=== PATIENT | female | born 1960 | race Caucasian/White ===

== ENCOUNTER 2020-09-15 12:43 | Outpatient (REF) | payer BC, SELFPAY | END 2020-09-15 12:44 | disposition home or self-care (01) | LOC: HO.LAB 12:43 | PROVIDERS: Visit Provider Internal Medicine | DX: Z20.828 Contact with and (suspected) exposure to other viral communicable diseases (principal) | CPT/HCPCS: C9803; U0003 ==

== ENCOUNTER 2021-03-14 07:52 | Outpatient (REF) | payer BC, SELFPAY ==
--- NOTE | ~2021-03-14 | MM_ITS ---
EXAMINATION: MM SCREENING DIGITAL BREAST TOMOSYNTHESIS, BILATERAL CLINICAL INFORMATION: Screening. Asymptomatic. The lifetime risk of breast cancer based on the Tyrer-Cuzick Model is 8%. COMPARISON: Mammography: 03/22/2015, 02/10/2014 TECHNIQUE: Digital breast tomosynthesis is performed in both the craniocaudal and mediolateral oblique views along with computer-aided detection (CAD). Synthesized 2D images are generated from the tomosynthesis. Additional exaggerated left CC view is provided. FINDINGS: There are scattered areas of fibroglandular density (ACR BI-RADS breast composition Category b). There are no significant masses, abnormal calcifications, or other abnormalities. Parenchymal pattern is similar to prior studies. No significant changes. MM/MM tomosynthesis screening BI IMPRESSION: No mammographic evidence of malignancy. ASSESSMENT: BI-RADS 1: Negative RECOMMENDATION: Routine annual mammography screening. This patient's information was entered into a reminder system with a target due date for their next mammogram.
--- NOTE | ~2021-03-14 | MM_ITS ---
EXAMINATION: BONE DENSITOMETRY CLINICAL INDICATION: Postmenopausal. COMPARISON: None (current study represents initial baseline exam). TECHNIQUE: Using a [employer] DXA System (software version: 13.1) manufactured by [employer], dual-energy x-ray absorptiometry was performed of the lumbar spine and left hip. The images are of good technical quality. Summary results are attached. FINDINGS: AP SPINE L1-L4: BMD 1.372 g/cm2, Z-score 1.5, T-score 1.6, normal. LEFT FEMUR, NECK: BMD 1.142 g/cm2, Z-score 1.1, T-score 0.7, normal. LEFT FEMUR, TOTAL: BMD 1.226 g/cm2, Z-score 1.7, T-score 1.7, normal. IDENTIFIED RISK FACTORS: 3 or more alcoholic drinks per day, thiazide. Early menopause, secondary osteoporosis. HISTORY OF FRACTURE: None listed. MEDICATIONS: None listed. MM/XR DEXA axial skeleton IMPRESSION: 1. DIAGNOSIS: Normal bone density based on the lowest T-score value of 0.7 in the femoral neck applying World Health Organization criteria. 2. 10-YEAR FRACTURE RISK PREDICTION, FRAX: Major osteoporotic fracture (clinical spine, forearm, hip or shoulder) 5.5%. Hip fracture 0.1%. 3. Treatment Recommendations: NOF guidelines recommend consideration for treatment in postmenopausal women and men age 50 and older presenting with the following: -A hip or vertebral (clinical or morphometric) fracture. -T-score less than or equal to -2.5 at the femoral neck or spine after appropriate evaluation to exclude secondary causes. -Low bone mass at the hip or spine and a 10-year fracture probability by FRAX of greater than or equal to 3% for hip fracture or greater than or equal to 20% for major osteoporotic fracture based on the [place] adapted WHO algorithm. 4. Other Recommendations: All treatment decisions require clinical judgment and consideration of individual patient factors, including patient preferences, comorbidities, previous drug use, risk factors not captured in the FRAX model (e.g. frailty, falls, vitamin D deficiency, increased bone turnover, interval significant decline in bone density) and possible under or overestimation of fracture risk by FRAX. FUTURE SCAN RECOMMENDATION: People with diagnosed cases of osteoporosis or at high risk for fracture should have regular bone mineral density tests. For patients eligible for Medicare, routine testing is allowed once every 2 years. The testing frequency can be increased to one year for patients who have rapidly progressing disease, those who are receiving or discontinuing medical therapy to restore bone mass, or have additional risk factors.
== END 2021-03-14 07:53 | disposition home or self-care (01) ==
LOC: HO.MAMMO 07:52
PROVIDERS: Visit Provider Internal Medicine
DX: Z13.820 Encounter for screening for osteoporosis (principal); Z78.0 Asymptomatic menopausal state; Z13.21 Encounter for screening for nutritional disorder
CPT/HCPCS: 77063; 77067; 77080

== ENCOUNTER 2022-03-24 08:17 | Outpatient (REF) | payer BC, SELFPAY ==
--- NOTE | ~2022-03-24 | XR_ITS ---
EXAMINATION: XR CHEST CLINICAL INFORMATION: Weight loss, fatigue, hypertension COMPARISON: Chest radiographs 09/23/2017 TECHNIQUE: 2 views of the chest were obtained. FINDINGS: Lungs are clear. The heart size is normal. The vascularity is normal. The costophrenic sulci are clear. The hilar and mediastinal contours and visualized bony structures are unremarkable. XR/XR chest 2V IMPRESSION: Unremarkable examination.
[2022-03-24 08:40] LABS: MANUAL DIFF FLAG NO
[2022-03-24 09:20] LABS: Basophils Percent Auto 0.5 % (0-2); Eosinophils Absolute Auto 0.1 X10*3/uL (0.0-0.4); Eosinophils Percent Auto 0.8 % (0-4); Hematocrit 41.3 % (37.0-47.0); Hemoglobin 13.8 g/dl (12.0-16.0); Imm Gran Abs Auto 0.02 X10*3/uL (0.00-0.03); Imm Gran Pct Auto 0.3 % (0.0-0.4); Lymphocytes Absolute Auto 1.7 X10*3/uL (1.2-4.9); Lymphocytes Percent Auto 26.4 % (20-40); Mean Corpuscular HGB Conc 33.4 g/dl (31.0-35.0); Mean Corpuscular Hemoglobin 33.7 pg (27.0-33.0); Mean Corpuscular Volume 100.7 fL (80.0-98.0); Mean Platelet Volume 10.2 fL (9.4-12.3); Monocytes Absolute Auto 0.6 X10*3/uL (0.1-1.2); Monocytes Percent Auto 9.6 % (2-11); Neutrophils Absolute Auto 4.1 x10*3/uL (2.0-8.3); Neutrophils Percent Auto 62.4 % (45-73); Platelet Count 192 X10*3/uL (160-400); Red Cell Distribution Width 13.7 % (11.0-16.0); White Blood Count 6.6 X10*3/uL (4.8-10.8)
[2022-03-24 09:34] LABS: Estimated Average Glucose 103 mg/dL; Hemoglobin A1C 121.7506 umol/L; Hemoglobin A1c % 5.2 %
[2022-03-24 09:53] LABS: Alanine Aminotransferase 48 U/L (0-31); Albumin Level 3.4 g/dL (3.5-5.0); Alkaline Phosphatase 144 U/L (39-117); Anion Gap 12 (12-20); Aspartate Amino Transferase 129 U/L (5-31); Blood Urea Nitrogen 17 mg/dL (9-16); Calcium 8.9 mg/dL (8.4-10.2); Carbon Dioxide 30 mmol/L (22-29); Chloride 100 mmol/L (96-108); Cholesterol 167 mg/dL; Estimated Glomerular Filt Rate > 60; Glucose Fasting 87 mg/dL (60-99); HDL Cholesterol 35 mg/dL; Potassium 4.4 mmol/L (3.3-5.1); Sodium 138 mmol/L (135-145); Total Protein 5.9 g/dL (6.5-8.0)
[2022-03-24 10:02] LABS: Free T4 (Free Thyroxine) 1.16 ng/dL (0.71-1.85); Thyroid Stimulating Hormone 2.33 uIU/mL (0.32-4.0)
[2022-03-24 10:17] LABS: Triglycerides 1410 mg/dL
[2022-03-26 09:35] LABS: Vitamin B12 251 pg/mL (200-900)
== END 2022-03-24 08:18 | disposition home or self-care (01) ==
LOC: HO.LAB 08:17
PROVIDERS: PCP Internal Medicine; Visit Provider Internal Medicine
DX: R63.4 Abnormal weight loss (principal); R53.83 Other fatigue; I10 Essential (primary) hypertension; E78.00 Pure hypercholesterolemia, unspecified
CPT/HCPCS: 36415; 71046; 80053; 80061; 82607; 83036; 84439; 84443; 85025

== ENCOUNTER 2022-03-29 11:57 | Outpatient (REF) | payer BC, SELFPAY ==
--- NOTE | ~2022-03-29 | MM_ITS ---
EXAMINATION: MM SCREENING DIGITAL BREAST TOMOSYNTHESIS, BILATERAL CLINICAL INFORMATION: Screening. Asymptomatic. The lifetime risk of breast cancer based on the Tyrer-Cuzick Model is 7%. COMPARISON: Mammography: 03/14/2021, 03/22/2015, 02/10/2014 TECHNIQUE: Digital breast tomosynthesis is performed in both the craniocaudal and mediolateral oblique views along with computer-aided detection (CAD). Synthesized 2D images are generated from the tomosynthesis. FINDINGS: There are scattered areas of fibroglandular density (ACR BI-RADS breast composition Category b). Parenchymal pattern is similar to prior exams and there is no developing density or interval mass or architectural abnormality. Regional asymmetry upper outer left breast is stable. There are no abnormal calcifications. The axilla and skin contours are unremarkable. MM/MM tomosynthesis screening BI IMPRESSION: No mammographic evidence of malignancy. ASSESSMENT: BI-RADS 2: Benign RECOMMENDATION: Routine annual mammography screening. This patient's information was entered into a reminder system with a target due date for their next mammogram.
== END 2022-03-29 11:58 | disposition home or self-care (01) ==
LOC: HO.MAMMO 11:57
PROVIDERS: Visit Provider Internal Medicine
DX: Z12.31 Encounter for screening mammogram for malignant neoplasm of breast (principal)
CPT/HCPCS: 77063; 77067

== ENCOUNTER 2022-03-30 08:13 | Outpatient (REF) | payer BC, SELFPAY ==
--- NOTE | ~2022-03-30 | US_ITS ---
EXAMINATION: US ABDOMEN COMPLETE CLINICAL INFORMATION: Fatigue. Weight loss. Rule out liver disease. COMPARISON: None TECHNIQUE: Real-time imaging of the abdominal viscera. FINDINGS: PANCREAS: The visualized pancreas is normal in size and uniform echogenicity. No pancreatic ductal distention. Pancreatic tail partly obscured by bowel gas. ABDOMINAL AORTA: The proximal, mid, and distal segments are normal in caliber. INFERIOR VENA CAVA: Visualized portions are normal. LIVER: The liver is upper limits of normal size and smooth in contour. There is increased hepatic parenchymal echogenicity consistent with hepatic steatosis. No focal hepatic parenchymal lesion or intrahepatic biliary ductal dilatation. GALLBLADDER: Normal. The gallbladder is physiologically distended without evidence of stones, sludge, polyps, wall thickening or pericholecystic fluid. COMMON BILE DUCT: Normal in caliber measuring 0.5 cm in diameter. RIGHT KIDNEY: Normal. No hydronephrosis. No renal calculi or focal parenchymal lesions. The kidney measures 11.3 cm in maximum dimension. LEFT KIDNEY: Normal. No hydronephrosis. No renal calculi or focal parenchymal lesions. Incidental lobation contour. The kidney measures 11.4 cm in maximum dimension. SPLEEN: Normal. The spleen measures 11.7 cm in maximum dimension. FREE FLUID: None. US/US abdomen complete IMPRESSION: -No cholelithiasis or ductal dilatation. -Hepatic steatosis. No focal parenchymal lesion. -Visualized pancreas is normal. Portion pancreatic tail obscured by bowel gas. -No hydronephrosis.
== END 2022-03-30 08:14 | disposition home or self-care (01) ==
LOC: HO.US 08:13
PROVIDERS: Visit Provider Internal Medicine
DX: R53.83 Other fatigue (principal); R63.4 Abnormal weight loss
CPT/HCPCS: 76700

== ENCOUNTER → 2022-04-27 08:28 | Outpatient (REF) | payer BC, SELFPAY ==
--- NOTE | 2022-04-27 08:31 | CA_ITS ---
Transthoracic Echocardiogram Patient (Last, First, Middle): Darya Michelle, Gender: Female Date of : 1960 Age: 61 Procedure Date: 04/27/2022 Procedure Type: Transthoracic Echocardiogram Location: OP Height: 175.26 cm Weight: 107.5 kg BSA: 2.22 m2 Heart Rate: bpm BP: 145 / 82 mmHg Advanced [employer] Consultant: TO Referring MD: Brian Martins MD Chart Collector: Lul Wall MD Symptoms: R53.83 FATIGUE, R63.4 ABNORMAL WT LOSS PLEASE ACCESS LV FUNCTION Study Quality: Adequate ECG Rhythm: Sinus Conclusions: - Essentially normal study Findings Left Ventricle Normal left ventricular size, thickness, and systolic function. The visually estimated ejection fraction is between 60-65%. Spectral Doppler is indicative of a normal filling pattern. Right Ventricle Normal right ventricular cavity size and systolic function. Atria Both atria are normal in size. There is no evidence of interatrial shunt. Aortic Valve Normal aortic valve structure and function. There is no aortic valve stenosis. There is no aortic valve regurgitation. Mitral Valve Normal mitral valve structure and function. There is trace mitral valve regurgitation. There is no mitral valve stenosis. Pulmonic Valve The pulmonic valve was not well visualized. Tricuspid Valve Likely normal tricuspid valve structure and function. There is trace tricuspid valve regurgitation. The right ventricular systolic pressure is normal. The right ventricular systolic pressure is 15 mmHg. Normal right atrial pressure. There is no evidence of pulmonary hypertension. Great Vessels All visible segments of the aorta are normal in size. The pulmonary artery was not well visualized. Venous The inferior vena cava is normal in size and collapses greater than 50% with inspiration. Pericardium/Pleural There is no evidence of pericardial effusion. Measurements 2D Linear Measurements IVSd: 0.96 0.6-0.9/0.6-1.0 cm LVIDd: 5.69 3.9-5.3/4.2-5.9 cm LVIDd Index: 2.56 2.4-3.2/2.2-3.1 cm/m2 LVIDs: 3.68 2.0-3.6 cm LVPWd: 0.87 0.7-1.1 cm LA Diam: 4.40 2.7-3.8/3.0-4.0 cm LAIDs Index: 1.98 1.5-2.3 cm/m2 LV Mass: 249.80 67-162/88-224 g LV Mass Index: 112.52 43-95/49-115 g/m2 LVOT Diam: 2.30 3.0+(-)1.3 cm 2D Systolic Function EF 4C: 58.20 >55% EF 2C: 56.20 >55% Mitral Valve MV Pk E: 0.78 MV PK A: 0.71 MV Decel Time: 220.00 E/A: 1.10 E'Lateral: 9.36 E'Medial: 6.53 E/E' Med: 11.90 E/E' Lat: 8.30 PHT: 64.00 MVA PHT: 3.44 Decel [place]: 3.53 Aortic Valve AoV Pk Efrain: 1.51 AoV Mn Efrain: 1.06 AoV VTI: 0.35 AoV Pk Grad: 9.00 Aov Mn Grad: 5.00 DUGLAS Cont.VTI: 2.90 LVOT LVOT Pk Efrain: 1.07 LVOT Mn Efrain: 0.68 LVOT VTI: 0.24 LVOT Pk Grad: 5.00 LVOT Mn Grad: 2.00 LVOT Diam: 2.30 LVOT Area: 4.15 Diastolic Function MV Pk E: 0.78 MV Pk A: 0.71 E/A: 1.10 E'Medial: 6.53 E/E' Med: 11.90 E' Laterial: 9.36 E/E' Lat: 8.30 Right Ventricle TAPSE (mm): 29.50 TVS' Efrain: 10.00 Tricuspid Valve TR Pk Efrain: 1.70 TR Pk Grad: 12.00 RA Press: 3.00 RVSP: 15.00 Great Vessels Aorta Sinus of Valsalva: 3.34 2.0-3.[address] [place]: 2.67 1.7-3.4 cm Ao Asc: 3.60 2.1-3.4 cm Ao Arch: 3.30 Updated in Other Vendor System with Status of Final Lul Wall MD electronically signed on 04/28/2022 3:42:17 PM with status of Final
== END ==
LOC: HO.CARD 08:28
PROVIDERS: Visit Provider Internal Medicine
DX: R53.83 Other fatigue (principal); R63.4 Abnormal weight loss
CPT/HCPCS: 93306

== ENCOUNTER 2022-06-29 07:05 | Outpatient (REF) | payer BC, SELFPAY ==
[2022-06-29 07:16] LABS: MANUAL DIFF FLAG NO
[2022-06-29 07:27] LABS: Basophils Percent Auto 0.3 % (0-2); Eosinophils Absolute Auto 0.1 X10*3/uL (0.0-0.4); Hemoglobin 12.7 g/dl (12.0-16.0); Imm Gran Abs Auto 0.03 X10*3/uL (0.00-0.03); Imm Gran Pct Auto 0.4 % (0.0-0.4); Lymphocytes Percent Auto 14.2 % (20-40); Mean Corpuscular HGB Conc 32.6 g/dl (31.0-35.0); Mean Corpuscular Hemoglobin 30.6 pg (27.0-33.0); Mean Platelet Volume 11.1 fL (9.4-12.3); Monocytes Absolute Auto 0.6 X10*3/uL (0.1-1.2); Monocytes Percent Auto 8.3 % (2-11); Neutrophils Absolute Auto 5.2 x10*3/uL (2.0-8.3); Neutrophils Percent Auto 74.8 % (45-73); Platelet Count 219 X10*3/uL (160-400); Red Blood Count 4.15 X10*6/uL (4.20-5.50); Red Cell Distribution Width 12.3 % (11.0-16.0); White Blood Count 6.9 X10*3/uL (4.8-10.8)
[2022-06-29 07:49] LABS: Alanine Aminotransferase 13 U/L (0-31); Albumin Level 4.1 g/dL (3.5-5.0); Alkaline Phosphatase 65 U/L (39-117); Anion Gap 14 (12-20); Aspartate Amino Transferase 14 U/L (5-31); Bilirubin Total 0.5 mg/dL (0.0-1.0); Blood Urea Nitrogen 21 mg/dL (9-16); Calcium 9.9 mg/dL (8.4-10.2); Carbon Dioxide 28 mmol/L (22-29); Chloride 105 mmol/L (96-108); Cholesterol 236 mg/dL; Estimated Glomerular Filt Rate > 60; Glucose Fasting 88 mg/dL (60-99); HDL Cholesterol 49 mg/dL; LDL Cholesterol Calculated 168 mg/dl; Potassium 4.5 mmol/L (3.3-5.1); Sodium 142 mmol/L (135-145); Total Protein 6.4 g/dL (6.5-8.0); Triglycerides 95 mg/dL
== END 2022-06-29 07:06 | disposition home or self-care (01) ==
LOC: HO.LAB 07:05
PROVIDERS: PCP Internal Medicine; Visit Provider Internal Medicine
DX: E78.5 Hyperlipidemia, unspecified (principal); R79.89 Other specified abnormal findings of blood chemistry
CPT/HCPCS: 36415; 80053; 80061; 85025

== ENCOUNTER 2022-07-02 07:49 | Outpatient (REF) | payer BC, SELFPAY ==
--- NOTE | ~2022-07-02 | US_ITS ---
EXAMINATION: US VENOUS REFLUX/INSUFFICIENCY CLINICAL INFORMATION: Varicose veins of right lower extremity with inflammation COMPARISON: Ultrasound 05/23/2020 TECHNIQUE: Bilateral lower extremity venous insufficiency ultrasound was performed with velocity measurements. Color flow Doppler imaging was performed. FINDINGS: RIGHT SIDE: No evidence of thrombus within the common femoral vein, mid femoral, popliteal vein. No demonstrable reflux in the deep system. GREATER SAPHENOUS VEIN: The right saphenofemoral junction measures 0.7cm. The reflux time is 0 ms. Proximal thigh measures 0.9cm. Reflux time is 0ms. Mid thigh measures 0.5cm. Reflux time is 0ms. Above-knee measures 0.5cm. Reflux time is 0ms. At the knee measures 0.4cm. Reflux time is 0ms. Below the knee measures 0.5cm. Reflux time is 1872ms. Mid calf measures 0.3cm. Reflux time is greater than 2908ms. At the level of the ankle it measures0.3cm. Reflux time is 0ms. SMALL SAPHENOUS VEIN: The upper right small saphenous vein measures 0.4 cm. Reflux time is greater than 3168ms. At the midcalf small saphenous vein measures 3 mm. Reflux time is greater than 2772 ms The lower small saphenous vein measures 0.3cm. Reflux time is 0ms. There is a lateral accessory saphenous vein. At the saphenofemoral junction it measures 0.4 cm. There is no demonstrable reflux. At the mid thigh it measures 0.3 cm and there is no demonstrable reflux. There is a 3 mm account executive [employer] vein at the proximal thigh which does not demonstrate reflux. At the mid thigh, there is a 3 mm [employer] which does not demonstrate reflux. There is a 3 mm [employer] vein at the proximal calf with reflux time 2100 ms. There is a 4 mm [employer] vein at the midcalf which has reflux time of greater than 2708 ms. There is a 3 mm varicose vein originating from a small saphenous vein without demonstrable reflux. At the proximal thigh, there is a 5 mm varicose vein without demonstrable reflux. At the proximal calf, there is a 3 mm varicose vein with reflux time at 1180 ms. LEFT SIDE: No evidence of thrombus within the common femoral vein, mid femoral, or popliteal vein. No demonstrable reflux in the deep system. GREATER SAPHENOUS VEIN: The left saphenofemoral junction measures 0.8 cm. The reflux time is 0 ms. Proximal thigh measures 0.6 cm. Reflux time is 0ms. Mid thigh measures 0.5 cm. Reflux time is greater than 2724ms. Above-knee measures 0.6 cm. Reflux time is greater than 2668 ms. At the knee measures 0.6 cm. Reflux time is greater than 2728 ms. Below the knee measures 0.4 cm. Reflux time is 0ms. Mid calf measures 0.2 cm. Reflux time is 0 ms. At the level of the ankle it measures 0.3 cm. Reflux time is greater than 2728 ms. SMALL SAPHENOUS VEIN: The upper left small saphenous vein measures 0.2 cm. Reflux time is 0 ms. The lower small saphenous vein measures 0.3 cm. Reflux time is 0ms. There is a lateral accessory saphenous which measures 0.7 cm at the saphenofemoral junction with reflux time greater than 3148 ms. At the mid thigh, the vein measures 0.5 cm with reflux time greater than 3180 ms. There is a 4 mm [employer] vein at the mid calf without demonstrable reflux. Originating from the accessory lateral saphenous vein at its midportion, there is a 3 mm varicose vein with reflux time greater than 2952 ms. At the proximal thigh, there is a 3 mm varicose vein without demonstrable reflux. At the mid thigh, there is a 3 mm varicose vein with reflux time greater than 2836 ms. At the knee, there is an 8 mm varicose vein with reflux time greater than 2684 ms. US/US venous duplex LE BI IMPRESSION: 1. On the right, there is significant reflux within the great saphenous vein below the knee and at the mid calf. There is also significant reflux within the small saphenous vein at the saphenofemoral junction and at the mid calf. There is also significant reflux within [employer] veins at the proximal and mid calf. There are several right lower extremity varicose veins including a 3 mm proximal calf varicosity with reflux time 1180 ms. 2. On the left, there is clinically significant reflux within the great saphenous vein from the mid thigh to the knee as well as at the level of the ankle. There is an accessory saphenous vein with significant reflux at the saphenofemoral junction and mid thigh. There are several varicose veins including a 3 mm varicosity originating from the accessory saphenous, a 3 mm varicosity at the mid thigh, and an 8 mm varicosity at the knee, all of which demonstrate significant reflux.
== END 2022-07-02 07:50 | disposition home or self-care (01) ==
LOC: HO.US 07:49
PROVIDERS: Visit Provider Surgery Vascular Surgery
DX: I83.11 Varicose veins of right lower extremity with inflammation (principal)
CPT/HCPCS: 93970

== ENCOUNTER → 2022-08-10 07:28 | Outpatient (BNVA) | payer BC, SELFPAY | PROVIDERS: PCP Internal Medicine; Visit Provider Surgery Vascular Surgery | DX: I83.12 Varicose veins of left lower extremity with inflammation (principal) | CPT/HCPCS: 36482 ==

== ENCOUNTER 2022-08-13 15:17 | Outpatient (REF) | payer BC, SELFPAY ==
--- NOTE | ~2022-08-13 | US_ITS ---
EXAMINATION: TRIPLEX SCANNING OF LEFT LOWER EXTREMITY; SUPERFICIAL ULTRASOUND WITH DOPPLER OF LEFT LOWER EXTREMITY CLINICAL INFORMATION: Status post Venaseal of the left great saphenous vein COMPARISON: 07/02/2022. TECHNIQUE: Color flow triplex imaging and compression Doppler were performed as well as superficial ultrasound with Doppler. FINDINGS: LEFT LOWER EXTREMITY DEEP VENOUS SYSTEM: Respiratory variation, normal compression and augmented flow are noted throughout the lower extremity. The visualized common femoral vein, femoral vein, profunda femoral vein, popliteal vein and the calf veins show no evidence of deep venous thrombosis. There is no evidence of Barr's cyst. SUPERFICIAL VENOUS SYSTEM: The great saphenous vein is occluded from the access site to 4.6 cm before the saphenofemoral junction. There is no extension of thrombus into the deep system. US/US venous duplex LE LT IMPRESSION: 1. No evidence of DVT. 2. Excellent appearance status post ablation of the left great saphenous vein.
== END 2022-08-13 15:18 | disposition home or self-care (01) ==
LOC: HO.US 15:17
PROVIDERS: Visit Provider Surgery Vascular Surgery
DX: M79.605 Pain in left leg (principal)
CPT/HCPCS: 93971

== ENCOUNTER 2022-11-05 09:29 | Day surgery (SDC) | payer BC, SELFPAY ==
[2022-11-03 11:32] VITALS: BMI 37.4
[2022-11-05 09:30] VITALS: BP 156/92; PULSE 57; RESP 20; TEMP 37.1; O2SAT 97
[2022-11-05] MEDS: Lactated Ringers 1,000 ML 100 ML IVCONT (10:03)
--- NOTE | 2022-11-05 10:28 | P.CONAN_ITS ---
HPI - Anesthesia Eval Consult details Narrative: 61 yo female patient for EGD, screening colonoscopy. Positive Cologuard test. [facility] Active Problems Active Problems: All Active Problems (Updated 11/05/22 @ 10:52am by Nickie Spear MD) Varicose veins of right lower extremity with inflammation (Acute) Varicose veins of left lower extremity with inflammation (Acute) Hypothyroidism H/o ETOH abuse. In recovery H/o MELIA. Patient states no symptoms since stopped drinking Increased BMI Past Medical History Medical History Elevated cholesterol GERD (gastroesophageal reflux disease) HTN (hypertension) Thyroid disease Family History Family history of problems with anesthesia: Yes (Son stopped breathing during endoscopy. ?arrested. Had to be resuscitated) Surgical History Surgical History History of endometrial ablation Hx of esophagogastroduodenoscopy Hx of vein stripping History of Problems with Anesthesia: No Social History Social History Patient Tobacco Use Status: Former Tobacco user Substance Use Frequency: Occasionally Are you DNR?: No Advance Directives: No Advance Directives Information Provided: Yes Recently lost weight without trying: No Nutrition Risks: No Nutritional Risk Meds Allergies Allergy/AdvReac Type Severity Reaction Status Date / Time Penicillins Allergy Severe STOPS Verified 08/21/22 08:57 BREATHING penicillin G Allergy Unknown hard time Verified 08/21/22 08:57 breathing Active Medications: Current Medications Sodium Biphosphate/Sodium Phosphate (Sodium Phosphate,Republic-Dibasic 133 Ml Enema) 133 ml AL ONCE PRN PRN Reason: Poor Colonoscopy Prep Results Home Medications Medication Instructions Recorded Confirmed Last Taken Type hydrochlorothiazide 12.5 mg capsule 12.5 mg PO DAILY 04/26/22 11/05/22 11/03/22 History levothyroxine 75 mcg tablet 75 mcg PO DAILY 04/26/22 11/05/22 11/03/22 History losartan 50 mg tablet 50 mg PO DAILY 04/26/22 11/05/22 11/03/22 History atorvastatin 40 mg tablet 40 mg PO DAILY 07/05/22 11/05/22 11/05/22 History esomeprazole magnesium 20 mg 20 mg PO DAILY 11/02/22 11/02/22 11/05/22 History capsule,delayed release (Nexium) Exam Exam Date and Time: November 05, 2022 1028 Height,Weight and Vital Signs: Height 5 ft 7 in Weight 108.409 kg Last Vital Signs Temp 98.7 F 11/05/22 09:30 Pulse 57 11/05/22 09:30 Resp 20 11/05/22 09:30 BP 156/92 H 11/05/22 09:30 Pulse Ox 97 11/05/22 09:30 O2 Del Method 11/05/22 09:30 Airway Mallampati Class: II TM Dist: >3cm Neck ROM: Full Loose/Missing/Broken Teeth: No (Cap back left. Tooth next to cap needs extraction but patient denies broken or loose) Heart: RRR Lungs: CTAB Assessment and Plan Assessment Anesthesia Assessment: Anesthesia Plan Discussed and Chart Reviewed Final Anesthetic Review Family History of Problems with Anesthesia: Yes (Son stopped breathing during endoscopy. ?arrested. Had to be resuscitated) History of Problems with Anesthesia: No NPO: Yes ASA Class: III Final Preanesthetic Review: No Changes in Pt Med Stat, Meds/Allgs Chart Reviewed, Consent Obtained/Reviewed and Anes Risks/Benef Reviewed Patient Risk: Intermediate Procedure Risk: Low Assessment/Block/Sedation in SS: Assess/Block/Sedation-SS Anesthetic Plan Anesthetic Plan: MAC: Disposition: Standard PACU
[2022-11-05 12:49] VITALS: BP 134/77; PULSE 54; RESP 16; TEMP 36.6; O2SAT 97
--- NOTE | 2022-11-05 12:51 | P.BOP_ITS ---
Brief Operative Note Date of Service: 11/05/22 Pre-op diagnosis: GERD, + Cologuard Post-op diagnosis: other (Hiatal hernia, Colon polyp) Procedure: EGD with biopsies, Colonoscopy to the cecum with biopsy Surgeon: Sami Hood Anesthesia: MAC Was an Flaring Machine Operator used for this Procedure?: No Estimated blood loss (mL): 2.0 Pathology: other (A. Gastric polyps B. EG Junction at 39cm C. Appendiceal orifice polyp) Condition: stable Disposition: PACU
[2022-11-05 13:04] VITALS: BP 140/73; PULSE 46; RESP 16; O2SAT 100
[2022-11-05 13:19] VITALS: BP 149/77; PULSE 52; RESP 16; O2SAT 100
[2022-11-05 13:34] VITALS: BP 142/67; PULSE 52; RESP 16; TEMP 36.6; O2SAT 99
--- NOTE | 2022-11-05 23:29 | OP_ITS ---
SURGEON: Sami Hood MD INDICATIONS: The patient presents for evaluation of gastroesophageal reflux and positive Cologuard test. Full consent has been obtained from her for both procedures, including risks of bleeding and perforation. PREOPERATIVE DIAGNOSIS: POSTOPERATIVE DIAGNOSIS: PROCEDURE PERFORMED: Esophagogastroduodenoscopy with biopsies and colonoscopy to the cecum with biopsy. ESTIMATED BLOOD LOSS: COMPLICATIONS: ANESTHESIA: Monitored anesthesia care. ASSISTANTS: SPECIMENS: PREOPERATIVE DIAGNOSES: Gastroesophageal reflux and positive Cologuard test. POSTOPERATIVE DIAGNOSES: Gastroesophageal reflux and positive Cologuard test, polyp at appendiceal orifice, small hiatal hernia, gastroesophageal reflux, rule- out Ozuna's esophagus, gastric polyps. DESCRIPTION OF PROCEDURE: The patient was placed in the left lateral decubitus position. The Olympus video gastroscope was passed in the posterior oropharynx and upper esophagus under direct vision. The scope was passed slowly to the distal esophagus. The gastroesophageal junction appeared at 39 cm. There was some slight irregularity consistent with reflux, but there was no esophagitis, nor any definitive evidence of Ozuna's mucosa. There was a small hiatal hernia. The scope entered into the stomach and was advanced to the pylorus. The duodenum was cannulated to the descending portion. The duodenum including the bulb appeared normal without mass or ulceration. The scope was withdrawn back in the stomach. The gastric antrum and body appeared normal with good peristalsis. The scope was retroflexed visualizing the proximal stomach carefully, which appeared normal, without any mass or ulceration, other than several hyperplastic-appearing gastric polyps. Biopsies were obtained from some of the polyps. The scope was straightened and withdrawn back to the esophagus. Biopsies were obtained at the EG junction at 39 cm. Proximal to this, the esophageal mucosa appeared normal. The scope was then withdrawn from the patient. She tolerated the procedure well, and was turned around for the colonoscopy. The digital rectal exam revealed no abnormalities other than some external hemorrhoids. The Olympus video pediatric colonoscope was entered into the rectum and advanced to the region of the proximal ascending colon. Advancement into the cecum was very difficult and required abdominal wall pressure. Once I was in the cecum, I did identify normal-appearing ileocecal valve with an initially normal-appearing appendiceal orifice. However, with peristalsis, there was a greater than 1cm adenomatous appearing polyp that appeared to be within the appendiceal orifice that kept going into and out of the appendiceal orifice. Given this location in the appendiceal orifice, I did not think it would be safe to do a polypectomy. It was also a very difficult area to maintain position. I was able to obtain what I think was a biopsy from the polyp, although again it was very difficult to maintain position in the cecum and the polyp itself kept going into and out of the appendiceal orifice. At that point, the scope was then slowly withdrawn assessing all mucosal surfaces carefully. For the most part, preparation was excellent. I did not visualize any other polyps, colitis, or angiodysplasia. There was a moderate amount of sigmoid diverticulosis. In the rectum, the scope was retroflexed visualizing internal hemorrhoids, but no other pathology. The rectal mucosa appeared normal. The scope was straightened and withdrawn from the patient. She tolerated the procedure well and was returned to the recovery area in stable condition. IMPRESSION: 1. Apparent appendiceal orifice polyp, status post biopsy. 2. Diverticulosis. 3. Internal hemorrhoids. 4. Hiatal hernia, rule out Ozuna esophagus. 5. Gastric polyps. PLAN: The results of the biopsies will be checked. Given the finding in the cecum and the appendiceal orifice, I suspect she will need surgical consultation to completely remove that. She will continue her Nexium for symptomatic relief of her reflux. She has been advised to continue to abstain from alcohol. MD BLU Jenkins/PAULINO / [id number] MTDD
== END 2022-11-05 14:18 | disposition home or self-care (01) ==
PROVIDERS: PCP Internal Medicine; Visit Provider Internal Medicine
PROC: (CPT 45380; principal; 2022-11-05 10:40)
DX: R19.5 Other fecal abnormalities (principal); D12.1 Benign neoplasm of appendix; K57.30 Diverticulosis of large intestine without perforation or abscess without bleeding; K64.8 Other hemorrhoids; K21.9 Gastro-esophageal reflux disease without esophagitis; K31.7 Polyp of stomach and duodenum; K44.9 Diaphragmatic hernia without obstruction or gangrene; I10 Essential (primary) hypertension; E78.5 Hyperlipidemia, unspecified; E03.9 Hypothyroidism, unspecified; Z79.899 Other long term (current) drug therapy; Z87.891 Personal history of nicotine dependence
CPT/HCPCS: 45380; 43239; 88305; 88342; J2405; J2765

== ENCOUNTER 2022-12-28 12:49 | Day surgery (SDC) | payer BC, SELFPAY ==
--- NOTE | 2022-12-27 13:32 | HO.ANESPROP2 ---
Documented by User: Allison Riggs NP 12/27/22 13:37 HPI - Anesthesia Eval Consult details Narrative: 61yo F for Colonoscopy s/p EGD/[place] 10/2022 with MAC (repeat d/t abnormal polyp) PMFSH Active Problems Active Problems: All Active Problems (Updated 11/02/22 @ 07:19 by Chloe Herrera RN) Varicose veins of right lower extremity with inflammation (Acute) AAA (abdominal aortic aneurysm) without rupture (Acute) Varicose veins of left lower extremity with inflammation (Acute) Past Medical History Medical History Elevated cholesterol GERD (gastroesophageal reflux disease) HTN (hypertension) Thyroid disease Family History Family history of problems with anesthesia: Yes (Son stopped breathing during endoscopy. ?arrested. Had to be resuscitated) Surgical History Surgical History History of endometrial ablation Hx of esophagogastroduodenoscopy Hx of vein stripping History of Problems with Anesthesia: No Social History Social History Patient Tobacco Use Status: Former Tobacco user Are you DNR?: No Advance Directives: No Advance Directives Information Provided: Yes Nutrition Risks: No Nutritional Risk Meds Allergies Allergy/AdvReac Type Severity Reaction Status Date / Time Penicillins Allergy Severe STOPS Verified 08/21/22 08:57 BREATHING penicillin G Allergy Unknown hard time Verified 08/21/22 08:57 breathing Home Medications Medication Instructions Recorded Confirmed Last Taken Type hydrochlorothiazide 12.5 mg capsule 12.5 mg PO DAILY 04/26/22 11/05/22 12/26/22 History levothyroxine 75 mcg tablet 75 mcg PO DAILY 04/26/22 11/05/22 12/28/22 History losartan 50 mg tablet 50 mg PO DAILY 04/26/22 11/05/22 12/28/22 History atorvastatin 40 mg tablet 40 mg PO DAILY 07/05/22 11/05/22 12/26/22 History esomeprazole magnesium 20 mg 20 mg PO DAILY 11/02/22 11/02/22 12/28/22 History capsule,delayed release (Nexium) Exam Exam Date and Time: December 27, 2022 1332 Pertinent Lab Results Pertinent Lab Results: Laboratory Tests 06/29/22 06/29/22 07:14 07:14 WBC 6.9 Hgb 12.7 Hct 39.0 Plt Count 219 Sodium 142 Potassium 4.5 Chloride 105 Carbon Dioxide 28 BUN 21 H Creatinine 0.74 Narrative Narrative: ECHO 04/2022 Conclusions: - Essentially normal study? Assessment and Plan Assessment Anesthesia Assessment: Chart Reviewed Final Anesthetic Review Family History of Problems with Anesthesia: Yes (Son stopped breathing during endoscopy. ?arrested. Had to be resuscitated) History of Problems with Anesthesia: No Documented by User: Ramya Rucker MD 12/28/22 14:07 [facility] Past Medical History Medical History Elevated cholesterol GERD (gastroesophageal reflux disease) HTN (hypertension) Thyroid disease Family History Family history of problems with anesthesia: No (Son stopped breathing during endoscopy. ?arrested. Had to be resuscitated) Surgical History Surgical History History of endometrial ablation Hx of esophagogastroduodenoscopy Hx of vein stripping Social History Social History Patient Tobacco Use Status: Former Tobacco user Are you DNR?: No Advance Directives: No Advance Directives Information Provided: Yes Nutrition Risks: No Nutritional Risk Meds Allergies Allergy/AdvReac Type Severity Reaction Status Date / Time Penicillins Allergy Severe STOPS Verified 08/21/22 08:57 BREATHING penicillin G Allergy Unknown hard time Verified 08/21/22 08:57 breathing Home Medications Medication Instructions Recorded Confirmed Last Taken Type hydrochlorothiazide 12.5 mg capsule 12.5 mg PO DAILY 04/26/22 11/05/22 12/26/22 History levothyroxine 75 mcg tablet 75 mcg PO DAILY 04/26/22 11/05/22 12/28/22 History losartan 50 mg tablet 50 mg PO DAILY 04/26/22 11/05/22 12/28/22 History atorvastatin 40 mg tablet 40 mg PO DAILY 07/05/22 11/05/22 12/26/22 History esomeprazole magnesium 20 mg 20 mg PO DAILY 11/02/22 11/02/22 12/28/22 History capsule,delayed release (Nexium) Exam Airway Mallampati Class: II (Cap lateral) TM Dist: >3cm Neck ROM: Full Heart: rrr Lungs: cta Assessment and Plan Assessment Anesthesia Assessment: Anesthesia Plan Discussed Final Anesthetic Review Family History of Problems with Anesthesia: No (Son stopped breathing during endoscopy. ?arrested. Had to be resuscitated) NPO: Yes ASA Class: III Final Preanesthetic Review: No Changes in Pt Med Stat, Meds/Allgs Chart Reviewed and Consent Obtained/Reviewed Patient Risk: Intermediate Procedure Risk: Intermediate Anesthetic Plan Anesthetic Plan: MAC: Disposition: Standard PACU
[2022-12-28] VITALS (7 sets, daily range): BP systolic 124–163; BP diastolic 74–89; PULSE 51–78; RESP 14–20; TEMP 36.2–36.9; O2SAT 97–100; BMI 37.6
[2022-12-28] MEDS: Lactated Ringers 1,000 ML 100 ML IVCONT (13:27)
--- NOTE | 2022-12-28 16:30 | P.BOP_ITS ---
Brief Operative Note Date of Service: 12/28/22 Pre-op diagnosis: Tubulovillous adenoma of the cecum Post-op diagnosis: other (Same, Diverticulosis) Procedure: Colonoscopy to the cecum with hot snare polypectomy x 1, and placement of 1 Resolution clip Surgeon: Sami Hood Anesthesia: MAC Was an Nurses Assistant used for this Procedure?: No Estimated blood loss (mL): 0 Pathology: other (A. Cecal polyp in area of appendiceal orifice) Condition: stable Disposition: PACU
--- NOTE | 2022-12-29 02:46 | OP_ITS ---
SURGEON: Sami Hood MD INDICATIONS: The patient presents for followup colonoscopy for reevaluation of a tubulovillous adenoma of the cecum. Full consent has been obtained from her for this, including risks of bleeding and perforation. PREOPERATIVE DIAGNOSIS: Tubulovillous adenoma of the cecum. POSTOPERATIVE DIAGNOSIS: PROCEDURE PERFORMED: Colonoscopy to the cecum with hot snare polypectomy and placement of 1 Resolution clip. ESTIMATED BLOOD LOSS: COMPLICATIONS: ANESTHESIA: Monitored anesthesia care converted to General Anesthesia ASSISTANTS: SPECIMENS: POSTOPERATIVE DIAGNOSES: Tubulovillous adenoma of the cecum, diverticulosis, and internal hemorrhage. DESCRIPTION OF PROCEDURE: The patient was placed in left lateral decubitus position. The digital rectal exam revealed no abnormalities. The Olympus video pediatric colonoscope was entered into the rectum and advanced to the cecum. Advancement was extremely difficult as it had been on her previous case. It required abdominal wall pressure and a lengthy amount of time. However, once in the cecum, I was able to visualize the cecal pouch, the appendiceal orifice and the previously known polyp coming from the region of the appendiceal orifice. I initially spent some time evaluating to see whether it could be removed endoscopically. However, the scope then fell back into the ascending colon and could not be advanced back into the cecum without her becoming too uncomfortable despite significant amounts of propofol and other medications for sedation At that point, the decision was made to have her undergo general anesthesia. She was turned onto her back for that. Once that was obtained, she was turned back on her left side. The Olympus video pediatric colonoscope was then entered into the rectum again and advanced to the cecum again with great difficulty and requiring abdominal pressure. However, once in the cecum, she was definitely much more comfortable than previously and allowed better inspection of the polyp. I did feel that it was on a short stalk coming from the outer edge of the appendiceal orifice. At that point, it was removed by hot snare polypectomy. The polypectomy site appeared to be clean, without any sign of residual polyp nor bleeding. The appendiceal orifice appeared normal otherwise. I placed a single Resolution clip onto the polypectomy site with good deployment and good hemostasis. I was very careful not to close the appendiceal orifice. The clip was definitely applied onto the polypectomy site on the edge of the appendiceal orifice. The remainder of the cecum appeared normal. The polyp was then recovered with a retrieval net and brought out of the patient. I did not visualize any other polyps, colitis nor angiodysplasia during the withdrawal. Preparation was excellent. There was a moderate amount of sigmoid and descending colon diverticulosis. The scope was retroflexed in the rectum after the scope was readvanced back in after the polyp was withdrawn. Internal hemorrhoids were noted, but no other pathology. The scope was withdrawn from the patient. She tolerated the procedure well and was returned to the recovery area in stable condition. IMPRESSION: 1. Tubulovillous adenoma of the cecum in the region of the appendiceal orifice, status post hot snare polypectomy and placement of 1 Resolution clip. 2. Diverticulosis. 3. Internal hemorrhoids. PLAN: The results of the pathology will be checked. I would recommend a repeat colonoscopy in 1 year for further screening and surveillance. She was advised not to use any aspirin and NSAIDs for 2 weeks. She would otherwise see me on a p.r.n. basis. This has been discussed with her . MD BLU Jenkins/PAULINO / [id number] MTDSadie
== END 2022-12-28 17:20 | disposition home or self-care (01) ==
PROVIDERS: PCP Internal Medicine; Visit Provider Internal Medicine
PROC: 0DJD8ZZ Inspection of Lower Intestinal Tract, Via Natural or Artificial Opening Endoscopic (ICD-10-PCS; CPT 45378; principal; 2022-12-28 14:00)
DX: D12.0 Benign neoplasm of cecum (principal); K57.30 Diverticulosis of large intestine without perforation or abscess without bleeding; K64.8 Other hemorrhoids; K21.9 Gastro-esophageal reflux disease without esophagitis; K76.0 Fatty (change of) liver, not elsewhere classified; F10.21 Alcohol dependence, in remission; I10 Essential (primary) hypertension; E78.5 Hyperlipidemia, unspecified; E03.9 Hypothyroidism, unspecified; Z79.899 Other long term (current) drug therapy; Z87.891 Personal history of nicotine dependence
CPT/HCPCS: 45385; 88305; J2250; J2405; J3010

== ENCOUNTER 2024-03-10 05:53 | Emergency (ER) | payer BC, SELFPAY ==
--- NOTE | 2024-03-10 | ECG_ITS ---
Test Reason : CHEST PAIN Blood Pressure : / mmHG Vent. Rate : 088 BPM Atrial Rate : 088 BPM P-R Int : 130 ms QRS Dur : 076 ms QT Int : 356 ms P-R-T Axes : 088 -31 039 degrees QTc Int : 430 ms Normal sinus rhythm Left axis deviation Abnormal ECG When compared with ECG of 23-MAY-2020 11:38, No significant change was found Referred By: Generic ED Physician Electronically Signed By:FRANKLYN DALEY
--- NOTE | ~2024-03-10 | XR_ITS ---
EXAMINATION: XR CHEST CLINICAL INFORMATION: Cough, shortness of breath COMPARISON: Chest x-ray on 03/24/2022 TECHNIQUE: 2 views of the chest were obtained. FINDINGS: vascularity. LUNGS: Lungs are clear. No pneumothorax is seen. BONES: Bony skeleton is intact. XR/XR chest 2V IMPRESSION: Unchanged Normal chest x-ray.
[2024-03-10 05:55] VITALS: BP 168/93; PULSE 96; RESP 20; TEMP 36.7; O2SAT 95; BMI 44.7
[2024-03-10 06:22] LABS: Basophils Percent Auto 0.2 % (0-2); Eosinophils Absolute Auto 0.1 X10*3/uL (0.0-0.4); Eosinophils Percent Auto 1.3 % (0-4); Hematocrit 37.7 % (37.0-47.0); Hemoglobin 12.8 g/dl (12.0-16.0); Imm Gran Abs Auto 0.01 X10*3/uL (0.00-0.03); Imm Gran Pct Auto 0.2 % (0.0-0.4); Lymphocytes Percent Auto 17.1 % (20-40); MANUAL DIFF FLAG NO; Mean Corpuscular Hemoglobin 29.4 pg (27.0-33.0); Mean Corpuscular Volume 86.5 fL (80.0-98.0); Mean Platelet Volume 10.4 fL (9.4-12.3); Monocytes Absolute Auto 0.6 X10*3/uL (0.1-1.2); Monocytes Percent Auto 11.4 % (2-11); Neutrophils Absolute Auto 3.9 x10*3/uL (2.0-8.3); Neutrophils Percent Auto 69.8 % (45-73); Platelet Count 214 X10*3/uL (160-400); Red Blood Count 4.36 X10*6/uL (4.20-5.50); Red Cell Distribution Width 13.3 % (11.0-16.0); White Blood Count 5.6 X10*3/uL (4.8-10.8)
[2024-03-10 06:31] LABS: COVID-19 Test Positive (Negative); IDNOW Serial# 08D9AD1C
[2024-03-10 06:35] LABS: Alanine Aminotransferase 13 U/L (0-31); Albumin Level 4.1 g/dL (3.5-5.0); Alkaline Phosphatase 85 U/L (39-117); Anion Gap 13 (12-20); Aspartate Amino Transferase 14 U/L (5-31); Bilirubin Total 0.5 mg/dL (0.0-1.0); Blood Urea Nitrogen 8 mg/dL (9-16); Calcium 9.3 mg/dL (8.4-10.2); Carbon Dioxide 26 mmol/L (22-29); Chloride 104 mmol/L (96-108); Creatinine Clr Calc Pharmacy 123.6; Estimated Glomerular Filt Rate > 60; Glucose Random 116 mg/dL (60-115); Lipase 11 U/L (8-78); Potassium 3.7 mmol/L (3.3-5.1); Sodium 139 mmol/L (135-145); Total Protein 6.9 g/dL (6.5-8.0)
[2024-03-10 06:38] LABS: IDNOW Serial# 152EDE1D; Influenza A Negative (Negative); Influenza B2 Negative (Negative)
[2024-03-10 06:42] LABS: Troponin-I High Sensitivity 3.8 ng/L (<3.5-17.0)
--- OUTSIDE RECORDS SUMMARY | 2024-03-10 06:43 | XMS_ITS | Patient Health Record ---
Author Organization [facility] Address [address] [place] [address] Care Team Providers Care Press Operator [employer] Name Role Phone Brian Martins MD Primary Care Provider Sami Lee [phone] ALLERGIES Allergen (clinical drug ingredient) Drug/Non Drug Allergy documented on EMR Reaction Allergy Type Onset Date Status Penicillin Unknown Drug Allergy Active REASON FOR REFERRAL No Information MEDICATIONS Medication SIG (Take, Route, Frequency, Duration) Notes Start Date End Date Status Atorvastatin Calcium 40 MG Oral for 90 Active NexIUM 20 MG 1 capsule Orally Onc e a day for 30 day(s) Active Levothyroxine Sodium 75 MCG TAKE 1 TABLE T BY MOUTH EVERY DAY Oral for 90 Active Losartan Potassium 50 MG TAKE 1 TABLET B Y MOUTH EVERY DAY Oral for 90 Active hydroCHLOROthiazide 12.5 MG TAKE ONE CAP CINTHYA BY MOUTH ONCE A DAY Oral for 90 Active IMMUNIZATIONS Vaccine Route Administration Date Status Comme nts Influenza Unknown 07/15/2022 Administered SOCIAL HISTORY Tobacco Use: Social History Observation Description Date Details (start date - stop date) Former Smoker NA - NA Sex Assigned At : Social History Observation Description Sex Assigned At Unknown Tobacco Use/Smoking Question Answer Notes Patient is a former smoker How long has it been since you last smoked? > 10 years Alcohol Screen Question Answer Notes Did you have a drink containing alcohol in the p ast year? 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) Active confirmed 2860572089 Problem Diverticulosis of large intestine without perforation or abscess without bleeding (K57.30) Active confirmed Diverticul ar disease of colon (973778240) Problem Gastroesophageal reflux disease (K21.9) Active confirmed Gastroesophagea l reflux disease (484829087) PLAN OF TREATMENT Future Test Test Name Order Date UPPER GI ENDOSCOPY 09/11/2022 COLONOSCOPY 09/11/2022 COLONOSCOPY 11/13/2022 Insurance Providers Payer Name Payer Address Payer Phone Subscriber Number Group Number Insured Name Patient Relationship to Insured Coverage Start Date Coverage End Date [facility] [address] [place], [place] [phone] [id number] KURTIS WHITAKER Self - patient is the insured MEDICAL (GENERAL) HISTORY Medical History History ICD Code EGD 10/18/2008 GERD Hypothyroidism Hyperlipidemia HTN Denies MN,DM,CVA,Lung disease,renal dise ase Surgical History Surgery Date(Month/Year) LE's veins 2021 Uterine ablation
--- NOTE | 2024-03-10 06:49 | ED.GENADULT ---
HPI - General Adult General Chief complaint: General Medical Stated complaint: URI Time Seen by Provider: 03/10/24 06:32 Source: patient, RN notes reviewed and old records reviewed Mode of arrival: ambulatory History of Present Illness ED Provider: Mireille Adrian PA-C [facility] narrative: 63-year-old female with a past medical history of AAA, COVID-19 on 02/19/2024, presenting to the ED complaining of dry cough, SOB, wheezing, chest discomfort with coughing and deep breathing, headache x 2 days. Also concern for UTI as is urinating on self with coughing. Denies fever, sore throat, abdominal pain, nausea/vomiting, recent travel, pedal edema, history of clots. States initially tested positive for COVID-19 in then had subsequent negative test prior to these symptoms starting Related Data Home Medications ?Medication ?Instructions ?Recorded ?Confirmed hydrochlorothiazide 12.5 mg capsule 12.5 mg PO DAILY 04/26/22 11/05/22 levothyroxine 75 mcg tablet 75 mcg PO DAILY 04/26/22 11/05/22 losartan 50 mg tablet 50 mg PO DAILY 04/26/22 11/05/22 atorvastatin 40 mg tablet 40 mg PO DAILY 07/05/22 11/05/22 esomeprazole magnesium 20 mg 20 mg PO DAILY 11/02/22 11/02/22 capsule,delayed release (Nexium) Allergies Allergy/AdvReac Type Severity Reaction Status Date / Time Penicillins Allergy Severe STOPS Verified 03/10/24 05:58 BREATHING penicillin G Allergy Unknown hard time Verified 03/10/24 05:58 breathing Review of Systems Review of Systems: Constitutional: No Fever, No Chills, +fatigue ENT/Mouth: No Ear Pain, + Nasal Congestion, No Sinus Pain, No Hoarseness, No sore throat, No Rhinorrhea, No Swallowing Difficulty Cardiovascular: + Chest Pain, + SOB Respiratory: + Cough, No Sputum, No Wheezing Gastrointestinal: No Nausea, No Vomiting, No Diarrhea, No Constipation, No Abdominal pain Genitourinary: No Dysuria, No Urinary Frequency, No Hematuria, No Flank Pain Musculoskeletal: No joint pain, No Myalgias, No Joint Swelling Skin: No Skin Lesions, No rash Neuro: No Weakness, No Numbness, No Paresthesias Yes all other systems are reviewed and are negative Constitutional: Constitutional: Reports as per [facility] Past Medical History Attestation statement: The following information was validated with the patient. Source: old records reviewed Medical History Thyroid disease Elevated cholesterol HTN (hypertension) GERD (gastroesophageal reflux disease) Surgical History History of endometrial ablation Hx of vein stripping Hx of esophagogastroduodenoscopy Social History Social History Patient Tobacco Use Status: Former Tobacco user Advance Directives: No Advance Directives Information Provided: Yes Do you have a plan to hurt others: No Plan Physical Exam ED Vital Signs: Vital Signs - 24 hr 03/10/24 05:55 03/10/24 07:08 Temperature 98.1 F Pulse Rate 96 61 Respiratory Rate 20 18 Blood Pressure 168/93 H Pulse Oximetry 95 Oxygen Delivery Method Room Air BMI result Body Mass Index 44.7 Const General: cooperative, healthy appearing and no acute distress Orientation/consciousness: patient oriented x3 Limitations: no limitations HENMT Head: Yes normal to inspection and Yes atraumatic Ears: hearing grossly normal bilaterally General nose exam: Normal external nose present Face and sinus: Yes normal facial exam Eyes General: appearance normal, both eyes and all related structures EOM: EOMs intact bilaterally Neck Neck: Yes normal visual inspection and Yes no meningeal signs Resp Effort & Inspection: normal respiratory effort and no respiratory distress Auscultation: clear to auscultation bilaterally, no crackles, no rhonchi and no wheezes Cardio Rate: regular rate Heart sounds: S1 normal heart sound present and S2 normal heart sound present GI Inspection: Yes normal to inspection Palpation (GI): Soft to palpation, nontender, no guarding and not rigid Skin Rashes: no rashes Wounds: no wounds Neuro General: patient oriented x3, tone normal and no meningeal signs Cranial nerves: Yes CN's II-XII intact bilaterally Gait exam (Neuro): Normal gait present Extrem General: Yes normal to inspection, Yes no pedal edema and Yes no calf tenderness Course Course Course Narrative: -0734--D-dimer WNL, PE unlikely. Labs otherwise reassuring. Troponin negative -COVID-19 positive -805--UA infected > will give p.o. Macrobid due to allergies XR chest 2V IMPRESSION: Unchanged Normal chest x-ray. Results discussed with patient including worrisome signs and symptoms and strict return precautions, and when to return to the emergency department. They verbalized understanding and feel safe for discharge at this time. Medications Administered Discontinued Medications Generic Name Dose Route Start Last Admin Trade Name Abdullahiq PRN Reason Stop Dose Admin Albuterol Sulfate 4 puff 03/10/24 06:51 03/10/24 07:06 Albuterol Sulfate 90 Mcg 8 Gm Inhaler INHALE 03/10/24 06:52 4 puff ONCE ONE Administration Medical Decision Making Medical Decision Making MDM Narrative: 63-year-old female with a past medical history of AAA, COVID-19 on 02/19/2024, presenting to the ED complaining of dry cough, SOB, wheezing, chest discomfort with coughing and deep breathing, headache x 2 days. On exam vital signs stable, NAD, nontoxic appearing, lungs CTA, abdomen soft/nontender. No appreciable pedal edema. Concern for continued/recurrent COVID-19 infection/viral syndrome vs bronchitis vs pneumonia vs PE. Lower suspicion for ACS, CHF, intra-abdominal pathology. Rule out UTI Plan: EKG, labs, CXR, viral testing, UA, albuterol inhaler Please refer to course for remaining clinical decision making, interpretation of labs/imaging results, and discussions with consultants and/or family members. Differential Diagnosis Differential Diagnoses: The differential diagnosis associated with the presentation includes As above Admission/Observation Consideration of admission/observation: Escalation of care including admission/observation considered Lab Data [facility] Lab Attestation statement: I reviewed the patient's lab results. 03/10/24 06:18 03/10/24 06:18 Labs: Lab Results 03/10/24 03/10/24 Range/Units 06:18 07:00 WBC 5.6 (4.8-10.8) X10*3/uL RBC 4.36 (4.20-5.50) X10*6/uL Hgb 12.8 (12.0-16.0) g/dl Hct 37.7 (37.0-47.0) % MCV 86.5 (80.0-98.0) fL MCH 29.4 (27.0-33.0) pg MCHC 34.0 (31.0-35.0) g/dl RDW 13.3 (11.0-16.0) % Plt Count 214 (160-400) X10*3/uL MPV 10.4 (9.4-12.3) fL Immature Gran % (Auto) 0.2 (0.0-0.4) % Neut % (Auto) 69.8 (45-73) % Lymph % (Auto) 17.1 L (20-40) % [place] % (Auto) 11.4 H (2-11) % Eos % (Auto) 1.3 (0-4) % Baso % (Auto) 0.2 (0-2) % Lymph # (Auto) 1.0 L (1.2-4.9) X10*3/uL [place] # (Auto) 0.6 (0.1-1.2) X10*3/uL Eos # (Auto) 0.1 (0.0-0.4) X10*3/uL Baso # (Auto) 0.0 (0.0-0.2) X10*3/uL Abs Immat Gran (auto) 0.01 (0.00-0.03) X10*3/uL Absolute Neuts (auto) 3.9 (2.0-8.3) x10*3/uL Absolute Nucleated RBC 0.000 (0.0-0.012) X10*3/uL Nucleated RBC % (auto) 0.0 (0.0-0.2) /100WBC D-Dimer High Sensitivty 186 NG/ML Sodium 139 (135-145) mmol/L Potassium 3.7 (3.3-5.1) mmol/L Chloride 104 (96-108) mmol/L Carbon Dioxide 26 (22-29) mmol/L Anion Gap 13 (12-20) BUN 8 L (9-16) mg/dL Creatinine 0.67 (0.5-1.4) mg/dL Estim Creat Clear Calc 123.6 Estimated GFR > 60 Random Glucose 116 H (60-115) mg/dL Calcium 9.3 D (8.4-10.2) mg/dL Total Bilirubin 0.5 (0.0-1.0) mg/dL AST 14 (5-31) U/L ALT 13 (0-31) U/L Alkaline Phosphatase 85 (39-117) U/L Troponin I High Sens 3.8 (<3.5-17.0) ng/L Total Protein 6.9 (6.5-8.0) g/dL Albumin 4.1 (3.5-5.0) g/dL Lipase 11 (8-78) U/L Urine Color Yellow Urine Appearance Clear Urine pH 8.0 (5.0-9.0) Ur Specific [place] 1.020 (1.005-1.025) Urine Protein 30 (1+) H (Neg-Trace) mg/dL Urine Glucose (UA) Negative (Negative) mg/dL Urine Ketones Negative (Negative) mg/dL Urine Blood Small (1+) H (Negative) Urine Nitrite Negative (Negative) Ur Leukocyte Esterase Moderate (2+) H (Negative) Urine RBC >20 H (0-2) /HPF Urine WBC >50 H (0-5) /HPF Ur Squamous Epith Cells 3-5 (0-2) /HPF Urine Bacteria None Seen (None Seen) Hyaline Casts 0-2 (0-2) /LPF COVID-19 (DEL) Positive A (Negative) COVID-19 Clin Com See Note Influenza Type A (ROTEGA) Negative (Negative) Influenza Type B (ORTEGA) Negative (Negative) Influenza A & B Note See Note Independent Interpretation I performed an independent interpretation of an: EKG (My interpretation EKG normal sinus rhythm rate of 88. Pr interval 130. QTC 430. No significant change. No STEMI) and Plain X-Ray Radiology Impression Discussion of test interpretation with radiology: I have reviewed the radiologist's reading. External Record Review External record reviewed: Inpatient record, Office record, Outpatient record, Prior outpatient labs, Prior outpatient radiology, Primary care record and Outside ED record Tests considered The following testing was considered but not selected: As above Prescription Management I considered prescription management with: Antiviral and Antibiotic Chronic Conditions Patient?s care impacted by: Other (AAA) Discharge Plan Discharge Clinical Impression: COVID-19, UTI (urinary tract infection), Bronchitis Patient Disposition: Home, Self-Care Additional Instructions: You have COVID-19. You also have a urinary tract infection Please take antibiotics as prescribed Tessalon Perles for cough In addition take Tylenol/Motrin Use inhaler as needed for shortness of breath/wheezing Rest Stay hydrated YOU HAVE COVID-19 At this time you will be okay for discharge. Please self isolate for 5 days. Do not expose yourself to others. You may not go to work or school. Please continue to follow cold instructions and wash your hands frequently. You may take Tylenol / Motrin as directed on the bottle for pain or fever. If you have constant or persistent shortness of breath, fever unresolved with medications, chest pain, or your unable to eat or drink please return to the ED CDC Guidelines for home isolation: - Stay away from others - WEAR A MASK if you are sick AND STAY HOME - Cover your mouth and nose with a tissue when you cough or sneeze. Dispose of tissues in a lined trash can and wash your hands immediately with soap and water for at least 20 seconds. If soap and water are not available, clean hands with alcohol-based hand route sales person that contains at least 60% alcohol. - Clean your hands often with soap and water for at least 20 seconds - Avoid touching your eyes, nose and mouth with unwashed hands - Do not share dishes, drinking glasses, cups, eating utensils, towels, or bedding with other people in your home. After using these items, wash them thoroughly with soap and water or put in the food crops farm hand. - Clean high-touch surfaces in your isolation area ( sick room and bathroom) every day; let a caregiver clean and disinfect high-touch surfaces in other areas of the home. Clean the area or item with soap and water or another detergent if it is dirty. Then, use a household disinfectant. - Limit contact with pets and animals: If you must care for a pet, wash your hands before and after interacting with them) Prescriptions: No Action esomeprazole magnesium [Nexium] 20 mg Capsule,Delayed Release(Dr/Ec) 20 mg PO DAILY atorvastatin 40 mg tablet 40 mg PO DAILY hydrochlorothiazide 12.5 mg capsule 12.5 mg PO DAILY levothyroxine 75 mcg tablet 75 mcg PO DAILY losartan 50 mg tablet 50 mg PO DAILY Referrals: Brian Martins MD [Primary Care Provider] - 5 days Stand Alone Forms: Work/School Release Print Language: Italian
[2024-03-10] MEDS: Albuterol Sulfate 90 MCG 8 GM INHALER 4 PUFF INHALE (07:06)
[2024-03-10 07:08] VITALS: PULSE 61; RESP 18; O2SAT 96
[2024-03-10 07:11] LABS: Appearance Urine Clear; Color Urine Yellow; Glucose Urine UA Negative (Negative); Leukocyte Esterase Urine Moderate (2+) (Negative); Nitrite Urine Negative (Negative); UMIC TRIGGER UACC YES; Urine Blood Small (1+) (Negative); Urine Ketones Negative (Negative); Urine Protein 30 (1+) mg/dL (Neg-Trace)
[2024-03-10 07:17] LABS: D Dimer High Sensitivity 186 NG/ML
[2024-03-10 07:36] LABS: Bacteria Urine None Seen (None Seen); Hyaline Casts Urine 0-2 /LPF (0-2); RBC Urine >20 /HPF (0-2); UACC Culture Trigger YES; WBC Urine >50 /HPF (0-5)
[2024-03-10] MEDS: Butalb/Acetamin/Caff 50/325/40 TABLET 1 TAB PO (08:38)
[2024-03-10 08:48] VITALS: BP 152/84; PULSE 86; RESP 19; TEMP 37.2; O2SAT 96
== END 2024-03-10 08:49 | disposition home or self-care (01) ==
PROVIDERS: Physician Assistant; Emergency Provider Emergency Medicine; PCP Internal Medicine
DX: N39.0 Urinary tract infection, site not specified (principal); J40 Bronchitis, not specified as acute or chronic; U07.1 COVID-19; R05.9 Cough, unspecified; R06.02 Shortness of breath; R51.9 Headache, unspecified; I10 Essential (primary) hypertension; K21.9 Gastro-esophageal reflux disease without esophagitis
CPT/HCPCS: 36415; 71046; 80053; 81001; 83690; 84484; 85025; 85379; 87086; 87502; 87635; 93005; 94640; 99284; 99285

== ENCOUNTER → 2024-03-10 06:02 | Outpatient (BNV) | payer BC, SELFPAY | PROVIDERS: Emergency Provider Emergency Medicine; PCP Internal Medicine; Visit Provider Internal Medicine | DX: R07.9 Chest pain, unspecified (principal) | CPT/HCPCS: 93010 ==

== ENCOUNTER 2024-06-05 12:09 | Emergency (ER) | payer BC, SELFPAY ==
--- NOTE | ~2024-06-05 | CT_ITS ---
EXAMINATION: CT angio head neck CLINICAL INFORMATION: Concern for cerebellar infarct. COMPARISON: No relevant prior imaging. TECHNIQUE: Public Employment Mediator images were obtained. A CT angiogram of the head and neck was performed in the arterial phase after the intravenous administration of 70 mL Omnipaque 350. Pre and delayed postcontrast images of the head were also obtained. 3D images were processed on an independent workstation under concurrent supervision. Arterial stenoses are measured in accordance with NASCET criteria or similar method if applicable. This CT examination was performed using dose optimization techniques as appropriate, including one or more of the following: Automated exposure control, iterative reconstruction, and adjustment of technique factors (mA and/or kVp) according to patient size (this includes techniques or standardized protocols for targeted exams where dose is matched to indication/reason for exam). Fleischner Society criteria for the followup of incidental pulmonary nodules was implemented if appropriate. Total exam dose-length product 2274 mGy-cm FINDINGS: Head: There is no acute intracranial hemorrhage. Postcontrast images reveal no abnormal intracranial mass or enhancement. No abnormal extra-axial collection. No intracranial mass effect or hydrocephalus. Florez-white matter differentiation is preserved and there is no evidence of an acute territorial infarct. The calvarium and skull base are intact. Mastoid air cells and middle ear cavities are well aerated. No active paranasal sinus disease. CT angiogram neck: The aortic arch apex is normal. Origins of the major aortic branches are patent. Common carotid arteries are normal. Partially calcified atheromatous plaque involves both carotid bifurcations. There is less than 25% stenosis at the origin of the right internal carotid. The left extra cranial internal carotid artery is patent. Cervical segments of the vertebral arteries are patent. CT angiogram head: Intracranial internal carotid arteries are normal. The intradural vertebral artery segments and basilar artery are normal. Anterior, middle, and posterior cerebral artery complexes are normal. No intracranial large vessel occlusion. No identifiable aneurysm or high flow vascular lesion. The timing of the contrast injection provides adequate opacification of the dural venous sinuses which are patent. Other: Soft tissues of the neck including the thyroid gland are normal. No pathologically enlarged cervical lymph nodes. No mediastinal or axillary adenopathy is visualized within the [id number] of this examination. Lung apices are clear. CT/CT angio head neck IMPRESSION: Partially calcified atheromatous plaque involves both carotid bifurcations. There is less than 25% stenosis at the origin of the right internal carotid artery. Otherwise no stenosis of the cervical carotid or vertebral arteries. No intracranial large vessel occlusion. No evidence of acute territorial infarct or hemorrhage. No abnormal intracranial mass or enhancement. Electronically signed by: Sami Maier MD 06/05/2024 04:27 PM EDT
--- NOTE | 2024-06-05 12:19 | ED_ITS ---
HPI - Dizziness General Chief Complaint: Dizziness Stated Complaint: dizzness want BP check Time Seen by Provider: 06/05/24 13:25 Source: patient Mode of arrival: ambulatory Limitations: no limitations History of Present Illness ED Provider: Lindy Moreno PA-C HPI Narrative: Patient is a 63 year old assigned female at with a history of HTN and hypothyroidism presenting to the emergency department today with sudden onset dizziness and nausea. Patient states that at 12pm she suddenly became dizzy and nauseous. Patient states that she attempted to keep working through it but it proceeded to get worse. Patient states the only other time she has had an episode of vertigo was when she was diagnosed with COVID-19. Patient denies any lightheadedness, abdominal pain, vomiting, fever, chills, blurry vision, double vision, loss of vision, chest pain, difficulty breathing, shortness of breath, back pain, night sweats, pain with urination, increased urinary frequency, increased urinary urgency, blood in her urine or stool, syncope or a near syncopal episode, recent trauma or falls, bowel incontinence, bladder incontinence, or any other complaints at this time. MD elicited complaint: dizziness Timing: sudden onset Description: room spinning Associated symptoms: nausea Related Data Home Medications ?Medication ?Instructions ?Recorded ?Confirmed hydrochlorothiazide 12.5 mg capsule 12.5 mg PO DAILY 04/26/22 11/05/22 levothyroxine 75 mcg tablet 75 mcg PO DAILY 04/26/22 11/05/22 losartan 50 mg tablet 50 mg PO DAILY 04/26/22 11/05/22 atorvastatin 40 mg tablet 40 mg PO DAILY 07/05/22 11/05/22 esomeprazole magnesium 20 mg 20 mg PO DAILY 11/02/22 11/02/22 capsule,delayed release (Nexium) Previous Rx's ?Medication ?Instructions ?Recorded benzonatate 100 mg capsule 100 mg PO TID PRN cough #14 caps 03/10/24 nitrofurantoin 100 mg PO Q12H 5 days #10 caps 03/10/24 monohydrate/macrocrystals 100 mg capsule (Macrobid) meclizine 25 mg chewable tablet 25 mg PO DAILY PRN dizziness #7 06/05/24 (Antivert) tabs Allergies Allergy/AdvReac Type Severity Reaction Status Date / Time Penicillins Allergy Severe STOPS Verified 06/05/24 12:24 BREATHING penicillin G Allergy Unknown hard time Verified 06/05/24 12:24 breathing Review of Systems 2 Constitutional: Constitutional: Reports no additional constitutional complaints, Denies chills, Denies fever(s) and Denies night sweats Eyes: Eyes: Reports no additional eye complaints, Denies blurry vision, Denies change in vision, Denies diplopia, Denies eye discharge, Denies loss of vision and Denies eye pain ENT: Reports dizziness Cardiovascular: Cardiovascular: Reports no additional cardiovascular complaints, Denies chest pain, Denies lightheadedness, Denies Loss of Consciousness and Denies dyspnea Respiratory: Respiratory: Reports no additional respiratory complaints and Denies dyspnea Gastrointestinal: Gastrointestinal: Reports no additional gastrointestinal complaints, Denies abdominal pain, Denies melena, Denies hematochezia, Denies change in bowel habits, Denies change in stool character and Reports nausea Genitourinary: Genitourinary: Denies hematuria, Denies urinary frequency, Denies dysuria, Denies urinary incontinence, Denies urinary hesitancy and Denies urinary urgency Musculoskeletal: Musculoskeletal: Reports no additional musculoskeletal complaints, Denies numbness and Denies tingling Neurologic: Reports dizziness, Denies loss of vision, Denies numbness and Denies tingling Psychiatric: Psychiatric: Reports no additional psychiatric complaints Endocrine: Endocrine: Reports no additional endocrine complaints Hematologic/Lymphatic: Hematologic/Lymphatic: Reports no additional hematologic/lymphatic complaints Allergic/Immunologic: Allergic/Immunologic: Reports no additional allergic/immunologic complaints [facility] Past Medical History Attestation statement: The following information was validated with the patient. Source: old records reviewed and nursing notes reviewed Medical History Thyroid disease Elevated cholesterol HTN (hypertension) GERD (gastroesophageal reflux disease) Surgical History History of endometrial ablation Hx of vein stripping Hx of esophagogastroduodenoscopy Social History Social History Patient Tobacco Use Status: Former Tobacco user Advance Directives: No Advance Directives Information Provided: Yes Do you have a plan to hurt others: No Plan Physical Exam 2 Vital Signs: Vital Signs: Last Vital Signs Temp 97.3 F 06/05/24 16:56 Pulse 62 06/05/24 16:56 Resp 16 06/05/24 16:56 BP 143/77 H 06/05/24 16:56 Pulse Ox 97 06/05/24 16:56 O2 Del Method Room Air 06/05/24 16:56 BMI result Body Mass Index 42.6 Const: General: cooperative, no acute distress, alert and awake Nutritional Appearance: well nourished Orientation/consciousness: patient oriented x3 Limitations: no limitations HEENT: Head: Yes normal to inspection and Yes atraumatic Ears: hearing grossly normal bilaterally and external ears normal General nose exam: Normal external nose present, no nasal discharge noted and no epistaxis Face and sinus: Yes normal facial exam, No abrasion and No laceration Mouth: Normal oral and palatal mucosa present, no drooling and no muffled voice Eyes: General: appearance normal, both eyes and all related structures P eriorbital: periorbital findings normal Eyelids: Yes eyelids normal C onjunctivae: conjunctivae normal Pupils: Equal, round and reactive pupils present EOM: EOMs intact bilaterally Neck: Neck: Yes normal visual inspection, Yes full ROM and Yes no lymphadenopathy Chest: Chest palpation & inspection: normal inspection of the chest Resp: Effort & Inspection: normal respiratory effort and able to speak in complete sentences GI: Inspection: Yes normal to inspection Neuro: General: patient oriented x3 and moves all extremities Cranial nerves: Yes Equal, round and reactive pupils present Cognition (Neuro): n ormal cognition Extrem: General: Yes normal to inspection, Yes full ROM and Yes capillary refill normal Psych: Appearance: grossly normal Mental Status: mental status grossly normal Affect: normal affect Attitude: cooperative Thought process: N ormal thought process present Thought content: Normal thought content present Insight: Good insight present (Psych) Course Course Course Narrative: This is a Rapid Medical Examination (RME) performed by Yasmine Mendoza PA-C in triage. Full HPI, ROS, assessment and treatment plan per primary provider in the Main ED. 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 dizziness is described as room spinning and has been constant since onset. states the last time she felt this dizzy was when she had covid and was diagnosed with vertigo. admits to nausea w/o vomiting. + PERRLA. no nystagmus. exam nonfocal. RRR. lungs clear. Plan: labs, ekg, viral swabs Medications Administered Discontinued Medications Generic Name Dose Route Start Last Admin Trade Name Micah PRN Reason Stop Dose Admin Iohexol 100 ml 06/05/24 15:10 06/05/24 15:10 Iohexol 350 Mg/Ml 100 Ml Infus..Btl IV 06/05/24 15:11 70 ml ONCE ONE Administration Meclizine HCl 25 mg 06/05/24 13:34 06/05/24 13:45 Meclizine Hcl 25 Mg Tablet PO 06/05/24 13:35 25 mg ONCE ONE Administration Ondansetron HCl 4 mg 06/05/24 12:23 06/05/24 12:31 Ondansetron Odt 4 Mg Tab.Rapdis TRANSLINGU 06/05/24 12:24 4 mg ONCE ONE Administration Medical Decision Making Medical Decision Making [facility] Narrative: Patient is a 63 year old assigned female at with a history of HTN and hypothyroidism presenting to the emergency department today with sudden onset dizziness and nausea. Patient's physical exam was unremarkable. Patient's blood work was unremarkable. Patient's EKG was unremarkable. Patient's CTA head and neck showed no acute process. I explained my physical exam findings as well as all test results to the patient. I answered all questions asked by the patient. Patient received PO Meclazine which she stated helped her symptoms significantly. I stressed the importance of the patient taking her medication as directed (either prescribed or as the over the counter packaging recommends). I stressed the importance of the patient following up with her primary care provider. I stressed the importance of the patient returning to the emergency department immediately if her symptoms were to worsen or if she were to develop any dizziness, shortness of breath, difficulty breathing, chest pain, blurry vision, loss of vision, nausea, vomiting, abdominal pain, fever, chills, back pain, or any other complaints. Patient verbalized agreement and understanding with this treatment plan and dischargee. Differential Diagnosis Differential Diagnoses: The differential diagnosis associated with the presentation includes Nausea Dizziness Vertigo Cerebellar stroke Admission/Observation Consideration of admission/observation: Escalation of care including admission/observation considered Patient would have been admitted to the hospital had her work up had any findings where hospital admission was appropriate and her clinical presentation warranted hospital admission. Lab Data [facility] Lab Attestation statement: I reviewed the patient's lab results. My interpretation of these results are in the MDM Rationale portion of this note. 06/05/24 12:39 06/05/24 12:39 Labs: Lab Results 06/05/24 06/05/24 Range/Units 12:39 14:14 WBC 6.1 (4.8-10.8) X10*3/uL RBC 4.15 L (4.20-5.50) X10*6/uL Hgb 12.0 (12.0-16.0) g/dl Hct 36.3 L (37.0-47.0) % MCV 87.5 (80.0-98.0) fL MCH 28.9 (27.0-33.0) pg MCHC 33.1 (31.0-35.0) g/dl RDW 14.7 (11.0-16.0) % Plt Count 209 (160-400) X10*3/uL MPV 11.2 (9.4-12.3) fL Immature Gran % (Auto) 0.3 (0.0-0.4) % Neut % (Auto) 63.4 (45-73) % Lymph % (Auto) 26.8 (20-40) % [place] % (Auto) 7.0 (2-11) % Eos % (Auto) 2.0 (0-4) % Baso % (Auto) 0.5 (0-2) % Lymph # (Auto) 1.6 (1.2-4.9) X10*3/uL [place] # (Auto) 0.4 (0.1-1.2) X10*3/uL Eos # (Auto) 0.1 (0.0-0.4) X10*3/uL Baso # (Auto) 0.0 (0.0-0.2) X10*3/uL Abs Immat Gran (auto) 0.02 (0.00-0.03) X10*3/uL Absolute Neuts (auto) 3.9 (2.0-8.3) x10*3/uL Absolute Nucleated RBC 0.000 (0.0-0.012) X10*3/uL Nucleated RBC % (auto) 0.0 (0.0-0.2) /100WBC PT 11.2 11.1 (11.1-13.3) SEC INR 0.9 0.9 (0.9-1.1) APTT 32.4 (26.0-36.8) SEC Sodium 141 (135-145) mmol/L Potassium 4.7 D (3.3-5.1) mmol/L Chloride 107 (96-108) mmol/L Carbon Dioxide 27 (22-29) mmol/L Anion Gap 12 (12-20) BUN 14 (9-16) mg/dL Creatinine 0.79 (0.5-1.4) mg/dL Estim Creat Clear Calc 105.2 Estimated GFR > 60 Random Glucose 106 (60-115) mg/dL Calcium 9.6 (8.4-10.2) mg/dL Magnesium 2.1 (1.6-2.6) mg/dL Total Bilirubin 0.4 (0.0-1.0) mg/dL AST 13 (5-31) U/L ALT 10 (0-31) U/L Alkaline Phosphatase 78 (39-117) U/L Troponin I High Sens < 2.7 (<3.5-17.0) ng/L Total Protein 6.4 L (6.5-8.0) g/dL Albumin 3.9 (3.5-5.0) g/dL TSH 2.22 (0.32-4.0) uIU/mL Influenza Type A (PCR) NEGATIVE (Negative) Influenza Type B (PCR) NEGATIVE (Negative) RSV RNA Qual (PCR) NEGATIVE (Negative) SARS-CoV-2 RNA (RT-PCR) NEGATIVE (Negative) Independent Interpretation I performed an independent interpretation of an: CT Scan Interpretation: My interpretation is in agreement with the radiologist's impression of this imaging study. - EXAMINATION: CT angio head neck CLINICAL INFORMATION: Concern for cerebellar infarct. COMPARISON: No relevant prior imaging. TECHNIQUE: Social Economist images were obtained. A CT angiogram of the head and neck was performed in the arterial phase after the intravenous administration of 70 mL Omnipaque 350. Pre and delayed postcontrast images of the head were also obtained. 3D images were processed on an independent workstation under concurrent supervision. Arterial stenoses are measured in accordance with NASCET criteria or similar method if applicable. This CT examination was performed using dose optimization techniques as appropriate, including one or more of the following: Automated exposure control, iterative reconstruction, and adjustment of technique factors (mA and/or kVp) according to patient size (this includes techniques or standardized protocols for targeted exams where dose is matched to indication/reason for exam). Fleischner Society criteria for the followup of incidental pulmonary nodules was implemented if appropriate. Total exam dose-length product 2274 mGy-cm FINDINGS: Head: There is no acute intracranial hemorrhage. Postcontrast images reveal no abnormal intracranial mass or enhancement. No abnormal extra-axial collection. No intracranial mass effect or hydrocephalus. Florez-white matter differentiation is preserved and there is no evidence of an acute territorial infarct. The calvarium and skull base are intact. Mastoid air cells and middle ear cavities are well aerated. No active paranasal sinus disease. CT angiogram neck: The aortic arch apex is normal. Origins of the major aortic branches are patent. Common carotid arteries are normal. Partially calcified atheromatous plaque involves both carotid bifurcations. There is less than 25% stenosis at the origin of the right internal carotid. The left extra cranial internal carotid artery is patent. Cervical segments of the vertebral arteries are patent. CT angiogram head: Intracranial internal carotid arteries are normal. The intradural vertebral artery segments and basilar artery are normal. Anterior, middle, and posterior cerebral artery complexes are normal. No intracranial large vessel occlusion. No identifiable aneurysm or high flow vascular lesion. The timing of the contrast injection provides adequate opacification of the dural venous sinuses which are patent. Other: Soft tissues of the neck including the thyroid gland are normal. No pathologically enlarged cervical lymph nodes. No mediastinal or axillary adenopathy is visualized within the [id number] of this examination. Lung apices are clear. CT/CT angio head neck IMPRESSION: Partially calcified atheromatous plaque involves both carotid bifurcations. There is less than 25% stenosis at the origin of the right internal carotid artery. Otherwise no stenosis of the cervical carotid or vertebral arteries. No intracranial large vessel occlusion. No evidence of acute territorial infarct or hemorrhage. No abnormal intracranial mass or enhancement. Electronically signed by: Clarence Maier MD 06/05/2024 04:27 PM EDT RP Dictated By: Clarence Maier MD Signed By: Electronically signed by Clarence Maier MD 06/05/24 1627 - Vent. Rate: 067 BPM Atrial Rate: 067 BPM P-R Int: 138 ms QRS Dur: 080 ms QT Int: 404 ms P-R-T Axes: 008 -24 029 degrees QTc Int: 426 ms Normal sinus rhythm with sinus arrhythmia Low voltage QRS Borderline ECG When compared with ECG of 10-MAR-2024 06:02, No significant change was found Electronically Signed By:CLARENCE DANIELS Dictated By: Clarence Turpin DO Signed By: Electronically signed by Clarence Turpin DO 06/05/24 3458 Radiology Impression Discussion of test interpretation with radiology: I have reviewed the radiologist's reading. Discharge Plan Discharge Clinical Impression: Dizziness, Vertigo Patient Disposition: Home, Self-Care Instructions: Vertigo (DC), Dizziness (ED) Additional Instructions: Your head CT with contrast did show some plaqgue in both carotid bifurcations with less than 25% stenosis (narrowing). Follow up with your primary care provider. Return to the emergency department immediately if your symptoms worsen or if you develop any dizziness, shortness of breath, difficulty breathing, chest pain, blurry vision, loss of vision, nausea, vomiting, abdominal pain, fever, chills, back pain, or any other complaints. Prescriptions: New meclizine [Antivert] 25 mg tablet,chewable 25 mg PO DAILY PRN (Reason: dizziness) Qty: 7 0RF No Action esomeprazole magnesium [Nexium] 20 mg Capsule,Delayed Release(Dr/Ec) 20 mg PO DAILY nitrofurantoin monohyd/m-cryst [Macrobid] 100 mg capsule 100 mg PO Q12H 5 Days Qty: 10 0RF Rx Instructions: must administer with a meal/food benzonatate 100 mg capsule 100 mg PO TID PRN (Reason: cough) Qty: 14 0RF atorvastatin 40 mg tablet 40 mg PO DAILY hydrochlorothiazide 12.5 mg capsule 12.5 mg PO DAILY levothyroxine 75 mcg tablet 75 mcg PO DAILY losartan 50 mg tablet 50 mg PO DAILY Referrals: Brian Martins MD [Primary Care Provider] - Stand Alone Forms: Work/School Release Interventions: ED Discharge Assessment Last Done: 06/05/24 16:56 Discharge Date/Time: 06/05/24 16:58 Print Language: Latvian
--- NOTE | 2024-06-05 12:20 | ECG_ITS ---
Test Reason : dizziness Blood Pressure : / mmHG Vent. Rate : 067 BPM Atrial Rate : 067 BPM P-R Int : 138 ms QRS Dur : 080 ms QT Int : 404 ms P-R-T Axes : 008 -24 029 degrees QTc Int : 426 ms Normal sinus rhythm with sinus arrhythmia Low voltage QRS Borderline ECG When compared with ECG of 10-MAR-2024 06:02, No significant change was found Referred By: Suzy Mendoza Electronically Signed By:CLARENCE DANIELS
[2024-06-05 12:24] VITALS: BP 143/77; PULSE 62; RESP 16; TEMP 36.3; O2SAT 97; BMI 42.6
[2024-06-05] MEDS: Ondansetron ODT 4 MG TAB.RAPDIS TRANSLINGU (12:31)
[2024-06-05 12:51] LABS: MANUAL DIFF FLAG NO
[2024-06-05 12:52] LABS: Basophils Percent Auto 0.5 % (0-2); Eosinophils Absolute Auto 0.1 X10*3/uL (0.0-0.4); Hematocrit 36.3 % (37.0-47.0); Imm Gran Abs Auto 0.02 X10*3/uL (0.00-0.03); Imm Gran Pct Auto 0.3 % (0.0-0.4); Lymphocytes Absolute Auto 1.6 X10*3/uL (1.2-4.9); Lymphocytes Percent Auto 26.8 % (20-40); Mean Corpuscular HGB Conc 33.1 g/dl (31.0-35.0); Mean Corpuscular Hemoglobin 28.9 pg (27.0-33.0); Mean Corpuscular Volume 87.5 fL (80.0-98.0); Mean Platelet Volume 11.2 fL (9.4-12.3); Monocytes Absolute Auto 0.4 X10*3/uL (0.1-1.2); Neutrophils Absolute Auto 3.9 x10*3/uL (2.0-8.3); Neutrophils Percent Auto 63.4 % (45-73); Platelet Count 209 X10*3/uL (160-400); Red Blood Count 4.15 X10*6/uL (4.20-5.50); Red Cell Distribution Width 14.7 % (11.0-16.0); White Blood Count 6.1 X10*3/uL (4.8-10.8)
[2024-06-05 12:59] LABS: INTERNATIONAL NORM RATIO 0.9 (0.9-1.1); Prothrombin Time 11.2 SEC (11.1-13.3)
[2024-06-05 13:11] LABS: Alanine Aminotransferase 10 U/L (0-31); Albumin Level 3.9 g/dL (3.5-5.0); Alkaline Phosphatase 78 U/L (39-117); Anion Gap 12 (12-20); Aspartate Amino Transferase 13 U/L (5-31); Bilirubin Total 0.4 mg/dL (0.0-1.0); Blood Urea Nitrogen 14 mg/dL (9-16); Calcium 9.6 mg/dL (8.4-10.2); Carbon Dioxide 27 mmol/L (22-29); Chloride 107 mmol/L (96-108); Creatinine Clr Calc Pharmacy 105.2; Estimated Glomerular Filt Rate > 60; Glucose Random 106 mg/dL (60-115); Magnesium 2.1 mg/dL (1.6-2.6); Potassium 4.7 mmol/L (3.3-5.1); Sodium 141 mmol/L (135-145); Total Protein 6.4 g/dL (6.5-8.0)
[2024-06-05 13:19] LABS: Troponin-I High Sensitivity < 2.7 ng/L (<3.5-17.0)
[2024-06-05 13:32] LABS: TSH reflex Free T4 2.22 uIU/mL (0.32-4.0)
[2024-06-05 13:34] LABS: Influenza A PCR NEGATIVE (Negative); Influenza B PCR NEGATIVE (Negative); Resp Syncy Virus RNA Qual PCR NEGATIVE (Negative); SARS COV2 PCR INHOUSE NEGATIVE (Negative)
[2024-06-05] MEDS: Meclizine HCl 25 MG TABLET PO (13:45)
--- NOTE | 2024-06-05 13:48 | PC.NURSE ---
PT Medicated per MAR. PT states she is still dizzy. PT in recliner states she does not need anything at the moment.
[2024-06-05 14:28] LABS: INTERNATIONAL NORM RATIO 0.9 (0.9-1.1); Prothrombin Time 11.1 SEC (11.1-13.3)
[2024-06-05 14:30] LABS: Partial Thromboplastin Time 32.4 SEC (26.0-36.8)
[2024-06-05] MEDS: iohexoL 350 MG/ML 100 ML INFUS..BTL IV (15:10)
[2024-06-05 16:56] VITALS: BP 143/77; PULSE 62; RESP 16; TEMP 36.3; O2SAT 97
--- OUTSIDE RECORDS SUMMARY | 2024-06-07 00:26 | XMS_ITS ---
Author Organization [facility] Address [address] [place] [address] Care Team Providers Care Messaging Architect Name Role Phone Brian Martins MD Primary Care Provider Sami Lee [phone] REASON FOR VISIT tubulovillous adenoma of colon & appendix Encounters Encounter Location Date Provider Diagnosis [facility] Outpatient [address] [place] [phone] 12/28/2022 Sami Hood Encounter for scre ening colonoscopy Z12.11 ; Colon polyps K63.5 ; Diverticulosis of large intestine without perforation or abscess without bleeding K57.30 and Other hemorrhoids K64.8 ASSESSMENTS Encounter Date Diagnosis Assessment Notes Treatment Notes Treatment Clinical Notes 12/28/2022 Encounter for screening colonoscopy (ICD-10 - Z12.11) 12/28/2022 Colon polyps (ICD-10 - K63.5) 12/28/2022 Diverticulosis of large intestine without perforation or abscess without bleeding (ICD-10 - K57.30) 12/28/2022 Other hemorrhoids (ICD-10 - K64.8) PLAN OF TREATMENT Next Appt Details Follow Up: prn, Reason:
--- OUTSIDE RECORDS SUMMARY | 2024-06-07 00:26 | XMS_ITS | Patient Health Record ---
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) Active confirmed [id number] Problem Diverticulosis of large intestine without perforation or abscess without bleeding (K57.30) Active confirmed Diverticul ar disease of colon (627110279) Problem Gastroesophageal reflux disease (K21.9) Active confirmed Gastroesophagea l reflux disease (310526929) PLAN OF TREATMENT Future Test Test Name Order Date UPPER GI ENDOSCOPY 09/11/2022 COLONOSCOPY 09/11/2022 COLONOSCOPY 11/13/2022 Insurance Providers Payer Name Payer Address Payer Phone Subscriber Number Group Number Insured Name Patient Relationship to Insured Coverage Start Date Coverage End Date [facility] [address] [place], [place] [phone] [id number] KURTIS WHITAKER Self - patient is the insured MEDICAL (GENERAL) HISTORY Medical History History ICD Code EGD 10/18/2008 GERD Hypothyroidism Hyperlipidemia HTN Denies [place],DM,CVA,Lung disease,renal dise ase Surgical History Surgery Date(Month/Year) LE's veins 2021 Uterine ablation
== END 2024-06-05 16:58 | disposition home or self-care (01) ==
PROVIDERS: Physician Assistant Medical; Emergency Provider Emergency Medicine; PCP Internal Medicine
DX: R42 Dizziness and giddiness (principal); R11.0 Nausea; I65.23 Occlusion and stenosis of bilateral carotid arteries; Z03.818 Encounter for observation for suspected exposure to other biological agents ruled out; I10 Essential (primary) hypertension; E78.00 Pure hypercholesterolemia, unspecified; E03.9 Hypothyroidism, unspecified; I71.40 Abdominal aortic aneurysm, without rupture, unspecified; Z79.02 Long term (current) use of antithrombotics/antiplatelets; Z79.899 Other long term (current) drug therapy
CPT/HCPCS: 0241U; 36415; 70496; 70498; 80053; 83735; 84443; 84484; 85025; 85610; 85730; 93005; 99283; 99284; Q9967

== ENCOUNTER 2025-03-15 09:54 | Outpatient (AMB) | payer BC, SELFPAY ==
--- NOTE | 2025-03-15 09:59 | MHC.PC.OV ---
Vital Signs 03/15/25 10:03 Height 5 ft 8 in Weight 124.284 kg BMI 41.7 BP 138/84 Respiration 16 Pulse 63 Pulse Source Pulse Oximeter Temp 97.6 F Temp Source Temporal Artery Scan Pulse Oximetry (%) 98 Oxygen Delivery Method Room Air Intake Visit Reasons: Office visit - see comments [employer] Machine Required: No Accompanied by: Self / Same As Patient Allergies Penicillins Allergy (Severe, Verified 03/15/25 10:00) STOPS BREATHING penicillin G Allergy (Unknown, Verified 03/15/25 10:00) hard time breathing Medication List - Last Reconciled 03/15/25 by ISIDRO Jimenez esomeprazole magnesium (Nexium) 20 mg PO DAILY levothyroxine 75 mcg PO DAILY losartan 50 mg PO DAILY oxybutynin chloride ER 5 mg PO DAILY HPI HPI Comments History of Present Illness Details 64-year-old female with history of hypertension, hyperlipidemia, hypothyroidism, morbid obesity and history of alcohol abuse presents to the office today for management of chronic conditions and to establish care. Hypertension-compliant with losartan 50 mg daily. Self discontinued hydrochlorothiazide. Blood pressure in the office today is 138/84. Hyperlipidemia-last LDL 168. Discontinued atorvastatin 40 mg daily on her own. She was concerned about long-term side effects. Hypothyroidism-compliant with levothyroxine 75 mcg daily. Due for TSH. History of alcohol abuse-reports sobriety of 3 years. Morbid obesity-BMI 41.7. She does work as a fruit and vegetable factory worker and walks several miles per day. However, she tells me she skips breakfast and lunch and then has a large dinner. States her has history of heart disease as well as diabetes so she does feel she cooks healthy meals. She is asking about GLP 1 medications. She is also reporting increased urinary frequency with urge incontinence ongoing for about 1 year. Denies any fevers, chills, dysuria, hematuria. Health maintenance: Overdue for screening mammogram Overdue for Pap smear Overdue for colonoscopy ROS: General: No fevers, malaise, unintentional weight loss HEENT: No blurred vision, diplopia. No sore throat, nasal congestion, rhinorrhea, sinus pain, ear pain Cardiovascular: No chest pain, palpitations, or leg edema Respiratory: No shortness of breath, wheezing, cough : see hpi MSK: No myalgia, back pain Neuro: No headaches, weakness, paresthesias Skin: No rashes or lesions EXAM: Constitutional - Awake and Alert, No apparent distress Eyes - PERRLA, EOMI Cardiovascular - S1S2, RRR, No edema Respiratory - Normal lung expansion, Normal respiratory effort, No respiratory distress, CTA bilaterally Extremities - no calf tenderness bilaterally, no swelling Skin - Warm/Dry Neurological - Alert & oriented x3 Psychological - Appropriate affect [facility] Medical History (Updated 03/15/25 @ 10:26 by ISIDRO Jimenez) Tubulovillous adenoma Urge incontinence History of alcohol abuse Morbid obesity Thyroid disease Elevated cholesterol HTN (hypertension) GERD (gastroesophageal reflux disease) Surgical History History of endometrial ablation Hx of vein stripping Hx of esophagogastroduodenoscopy Social History Patient Tobacco Use Status: Former Tobacco user Physical exam (Primary Care) Vital Signs: Last Vital Signs Temp 97.6 F 03/15/25 10:03 Pulse 63 03/15/25 10:03 Resp 16 03/15/25 10:03 Pulse Ox 98 03/15/25 10:03 Oxygen Delivery Method Room Air 03/15/25 10:03 BMI result Body Mass Index 41.7 Tobacco/Smoking Status: Tobacco use Status Patient Tobacco Use Status Former Tobacco user 03/15/25 10:02 Coding Level of Care Code New Pt Level 4 (93079) Complex EM visit Add On G2211 Diagnoses HTN (hypertension) I10 Elevated cholesterol E78.00 Thyroid disease E07.9 GERD (gastroesophageal reflux disease) K21.9 Morbid obesity E66.01 Urge incontinence N39.41 Assessment & Plan Assessment & Plan (1) HTN (hypertension): Code(s): I10 - Essential (primary) hypertension Category: Medical Plan: Controlled with blood pressure 138/84. Continue losartan 50 mg daily. We will evaluate renal function electrolyte levels (2) Elevated cholesterol: Code(s): E78.00 - Pure hypercholesterolemia, unspecified Category: Medical Plan: Lipid panel ordered. Discussed that given most recent lab results, statin is advised which she had discontinued. We will check levels today and reassess need for statin medication. Recommend diet low in saturated fats and refined sugars. (3) Thyroid disease: Code(s): E07.9 - Disorder of thyroid, unspecified Category: Medical Plan: TSH with reflex free T4 ordered. Continue levothyroxine 75 mcg daily, dose to be adjusted depending results of study. (4) GERD (gastroesophageal reflux disease): Code(s): K21.9 - Gastro-esophageal reflux disease without esophagitis Category: Medical Plan: Stable. Continue PPI (5) Morbid obesity: Code(s): E66.01 - Morbid (severe) obesity due to excess calories Category: Medical Plan: Weight loss efforts encouraged. Recommend diet lower in calories including simple carbohydrates, refined sugars, unhealthy fats. Recommend increased protein intake as well as increased vegetables and fruits. She is interested in GLP 1 agonists medications. Advised patient to contact her insurance company regarding coverage (6) Urge incontinence: Code(s): N39.41 - Urge incontinence Category: Medical Plan: Check UA/UC. Will also trial oxybutynin ER 5 mg daily, dose to be adjusted as needed. Plan Follow-up in the office as scheduled for annual physical exam. Labs to be completed following visit today. Referred for screening colonoscopy and mammogram. Referred to wine specialist for cervical cancer screening. Orders: Orders Complete Blood Count Auto Diff Today E07.9 - Disorder of thyroid, unspecified, E66.01 - Morbid (severe) obesity due to excess calories, E78.00 - Pure hypercholesterolemia, unspecified, I10 - Essential (primary) hypertension, K21.9 - Gastro-esophageal reflux disease without esophagitis Hemoglobin A1c Today E07.9 - Disorder of thyroid, unspecified, E66.01 - Morbid (severe) obesity due to excess calories, E78.00 - Pure hypercholesterolemia, unspecified, I10 - Essential (primary) hypertension, K21.9 - Gastro-esophageal reflux disease without esophagitis Lipid Panel Today E07.9 - Disorder of thyroid, unspecified, E66.01 - Morbid (severe) obesity due to excess calories, E78.00 - Pure hypercholesterolemia, unspecified, I10 - Essential (primary) hypertension, K21.9 - Gastro-esophageal reflux disease without esophagitis Liver Panel Today F10.11 - Alcohol abuse, in remission Basic Metabolic Panel Today E07.9 - Disorder of thyroid, unspecified, E66.01 - Morbid (severe) obesity due to excess calories, E78.00 - Pure hypercholesterolemia, unspecified, I10 - Essential (primary) hypertension, K21.9 - Gastro-esophageal reflux disease without esophagitis TSH reflex Free T4 Today E07.9 - Disorder of thyroid, unspecified, E66.01 - Morbid (severe) obesity due to excess calories, E78.00 - Pure hypercholesterolemia, unspecified, I10 - Essential (primary) hypertension, K21.9 - Gastro-esophageal reflux disease without esophagitis Vitamin D 25-OH Total Today E07.9 - Disorder of thyroid, unspecified, E66.01 - Morbid (severe) obesity due to excess calories, E78.00 - Pure hypercholesterolemia, unspecified, I10 - Essential (primary) hypertension, K21.9 - Gastro-esophageal reflux disease without esophagitis UA CC w/rflx Micro + Cult Today N39.41 - Urge incontinence, R35.0 - Frequency of micturition MM tomosynthesis screening BI Today Z12.31 - Encounter for screening mammogram for malignant neoplasm of breast Referrals Gastroenterology Referral D36.9 - Benign neoplasm, unspecified site, Z12.11 - Encounter for screening for malignant neoplasm of colon REGISTER IN CHANCERY Referral Z12.4 - Encounter for screening for malignant neoplasm of cervix Medications: New oxybutynin chloride ER 5 mg PO DAILY 90 tabs 1RF
[2025-03-15 10:03] VITALS: BP 138/84; PULSE 63; RESP 16; TEMP 36.4; O2SAT 98; BMI 41.7
== END 2025-03-15 10:28 | disposition home or self-care (01) ==
LOC: HO.HMCHD 09:55
PROVIDERS: PCP Internal Medicine; Visit Provider Physician Assistant
DX: I10 Essential (primary) hypertension (principal); E78.00 Pure hypercholesterolemia, unspecified; E07.9 Disorder of thyroid, unspecified; K21.9 Gastro-esophageal reflux disease without esophagitis; E66.01 Morbid (severe) obesity due to excess calories; N39.41 Urge incontinence

== ENCOUNTER → 2025-03-15 09:54 | Outpatient (BNVA) | payer BC, SELFPAY | PROVIDERS: PCP Internal Medicine; Visit Provider Physician Assistant ==

== ENCOUNTER 2025-03-15 10:25 | Outpatient (REF) | payer BC, SELFPAY ==
[2025-03-15 12:03] LABS: MANUAL DIFF FLAG NO
[2025-03-15 12:18] LABS: Basophils Absolute Auto 0.1 X10*3/uL (0.0-0.2); Basophils Percent Auto 0.7 % (0-2); Eosinophils Absolute Auto 0.1 X10*3/uL (0.0-0.4); Eosinophils Percent Auto 1.9 % (0-4); Hematocrit 38.5 % (37.0-47.0); Hemoglobin 12.8 g/dl (12.0-16.0); Imm Gran Abs Auto 0.02 X10*3/uL (0.00-0.03); Imm Gran Pct Auto 0.3 % (0.0-0.4); Lymphocytes Absolute Auto 2.2 X10*3/uL (1.2-4.9); Lymphocytes Percent Auto 32.7 % (20-40); Mean Corpuscular HGB Conc 33.2 g/dl (31.0-35.0); Mean Corpuscular Hemoglobin 30.3 pg (27.0-33.0); Mean Platelet Volume 11.5 fL (9.4-12.3); Monocytes Absolute Auto 0.6 X10*3/uL (0.1-1.2); Monocytes Percent Auto 8.8 % (2-11); Neutrophils Absolute Auto 3.7 x10*3/uL (2.0-8.3); Neutrophils Percent Auto 55.6 % (45-73); Platelet Count 225 X10*3/uL (160-400); Red Blood Count 4.23 X10*6/uL (4.20-5.50); Red Cell Distribution Width 13.2 % (11.0-16.0); White Blood Count 6.7 X10*3/uL (4.8-10.8)
[2025-03-15 12:42] LABS: Estimated Average Glucose 111 mg/dL; Hemoglobin A1c % 5.5 % (<6.0)
[2025-03-15 12:55] LABS: Appearance Urine Clear; Color Urine Yellow; Glucose Urine UA Negative (Negative); Leukocyte Esterase Urine Negative (Negative); Nitrite Urine Negative (Negative); PH 5.5 (5.0-9.0); Urine Blood Negative (Negative); Urine Ketones Negative (Negative); Urine Protein Negative (Neg-Trace)
[2025-03-15 13:08] LABS: Alanine Aminotransferase 17 U/L (0-31); Albumin Level 4.3 g/dL (3.5-5.0); Alkaline Phosphatase 77 U/L (39-117); Anion Gap 10 (12-20); Aspartate Amino Transferase 22 U/L (5-31); Bilirubin Direct 0.1 mg/dL (0.0-0.5); Bilirubin Total 0.4 mg/dL (0.0-1.0); Blood Urea Nitrogen 18 mg/dL (9-16); Calcium 9.7 mg/dL (8.4-10.2); Carbon Dioxide 30 mmol/L (22-29); Chloride 105 mmol/L (96-108); Cholesterol 319 mg/dL (<200); Estimated Glomerular Filt Rate > 60; Glucose Random 90 mg/dL (60-115); HDL Cholesterol 56 mg/dL (>40); LDL Cholesterol Calculated 234 mg/dL (<100); Potassium 4.5 mmol/L (3.3-5.1); Sodium 140 mmol/L (135-145); Total Protein 6.8 g/dL (6.5-8.0); Triglycerides 145 mg/dL (<150)
[2025-03-15 13:09] LABS: TSH reflex Free T4 3.83 uIU/mL (0.32-4.0); Vitamin D 25-OH Total 36.1 ng/mL (>30)
== END 2025-03-15 10:26 | disposition home or self-care (01) ==
LOC: HO.10HDL 10:25
PROVIDERS: Visit Provider Physician Assistant
DX: K21.9 Gastro-esophageal reflux disease without esophagitis (principal); E07.9 Disorder of thyroid, unspecified; E78.00 Pure hypercholesterolemia, unspecified; I10 Essential (primary) hypertension; E66.01 Morbid (severe) obesity due to excess calories; F10.11 Alcohol abuse, in remission; R35.0 Frequency of micturition; N39.41 Urge incontinence
CPT/HCPCS: 36415; 80048; 80061; 80076; 81003; 82306; 83036; 84443; 85025

== ENCOUNTER 2025-03-30 15:11 | Outpatient (REF) | payer BC, SELFPAY ==
--- OUTSIDE RECORDS SUMMARY | 2025-03-30 17:41 | XMS_ITS | Data Portability ---
Author Organization [facility] Aakash Henriquez [facility], [facility] Address [address] [place] [address] Assessment Encounter Date Assessment Date Assessment LastModified by Organization Details LastModified Time 04/02/2024 04/02/2024 History: The patient is approximately 3 months status post a left total hip arthroplasty and presents for routine follow-up per our request. Pain level 0-10. She is not requiring any medication. Working limited duty. She wants to return to full duty. She is very happy with results of surgery. Reports no limitations. PMH/PSH/MEDS/ALL/F MH/SOC HX/ROS all reviewed in detail per my medical intake sheet. ROS: The patient denies fevers, chills, neurovascular changes, history of trauma. Exam: Vitals signs as noted. Alert and oriented x3. Appears well and in no acute distress. Extremities: Incision is well-healed. Calves are soft and nontender. No evidence of DVT. No lower extremity edema. Neurovascular status at baseline. Painless range of motion of the hip. No trochanteric tenderness. X-rays: Radiographs were ordered and obtained today including an AP Pelvis and an AP and frog-lateral of the affected hip. Radiographs demonstrate a well-positioned total hip arthroplasty without evidence of fracture or dislocation. No subsidence or loosening is seen. Assessment: The patient is doing well approximately 3 months s/p ALEXANDER. Plan: The patient will continue activity as tolerated. Home exercise program reviewed. The patient was advised to take occasional OTC acetaminophen or OTC NSAIDS for mild residual discomfort if they are not otherwise medically contraindicated. They are encouraged to discuss this with their PCPS. The potential benefits, risks, and side effects were explained at length. Total hip precautions discussed and reinforced. Need for antibiotic prophylaxis for dental visits discussed. The patient will follow-up annually or sooner if there are any problems. [email or web address] Not available 04/02/2024 12:26:49 06/05/2024 06/05/2024 I am seeing the patient today under the supervision of huong who was available but who did not see the patient. The patient presents today for left hip pain status post left total hip arthroplasty. Was not having some pain in the outside of her hip rating down to her knee. Has been doing otherwise really well Has had no recent trauma, no fevers or chills, no neurovascular changes. Presents today for further evaluation. PAST MEDICAL/SURGICAL HISTORY Past medical history is reviewed per intake sheet. PHYSICAL FINDINGS On physical examination, the patient is well appearing and in no apparent distress, alert and oriented x3. Gait is symmetric. Physician examination of the hip reveals the skin to be intact, normal musculature, continued tenderness on palpation over the greater trochanter. No pain with range of motion of the hip, has full range of motion, no crepitus noted with range of motion. No significant pain with straight leg raise. 2 x-ray views of the hip were independently reviewed today we will place total hip arthroplasty no fractures or loosening deformity ASSESSMENT Symptomatic trochanteric bursitis of the L hip. PLAN I reviewed the findings with the patient, discussed different treatment options which included medications physical therapy and injections The patient wishes to proceed with continued conservative management as her symptoms are not consistent. We will continue with anti-inflammatorie s we will call me if things worsen for prescription for physical therapy and/or prescription NSAIDs we will hold off on cortisone for now Patient will follow up as discussed [email or web address] Not available 06/05/2024 10:23:03 11/20/2024 11/20/2024 I am seeing the patient today under the supervision of huong who was available but who did not see the patient. HPI: Patient presents today regarding their R knee. They have had difficulty up and down stairs sitting standing. Problems ambulating. Fybn-eky-ekfopqw medications are helping somewhat but not significantly. Pain is constant aching sometimes sharp pain with giving out sensations. Past family, medical, social history and review of systems has been reviewed, updated and is located in the patient? s chart. Examination: The patient is well appearing and in no apparent distress. Alert and oriented x3. Gait is symmetric. Examination of the R knee reveals no evidence of any edema, erythema, or warmth. no Deformity. Range of motion of the knee limited with mild discomfort at the end ranges. Mild effusion. Does have some tenderness to palpation about the medial hemijoint line. No tenderness to palpation about the lateral hemijoint line. Patellofemoral crepitus is noted. mild lateral ligamentous laxity. Negative Jun? s . Calf is supple and nontender. Neurovascularly intact distally. 4 X-ray views of the knee were independently reviewed today showed narrowing of the medial compartment of the R knee. With slight osteophyte formation. Narrowing is noted of patellofemoral joint as well. No evidence of any other bony lesions or pathology. Impression:R Knee osteoarthritis Plan: We discussed the role of conservative management including medications, physical therapy, injection and bracing. At this point the patient was to proceed with injection. Please see procedure note. They will follow up with us as scheduled. [email or web address] Not available 11/20/2024 14:13:37 Plan of Treatment Reminders Order Date Submit Date Provider Last Modified By Organization Details Last Modified Time Details Appointments None recorded. Lab None recorded. Referral None recorded. Procedures None recorded. Surgeries None recorded. Imaging XR, knee, 4 or more view - rm 314 4v honey knee 2024 025 [email or web address] [facility], [address], [address], [place], [address], 5 15:14:47 XR, hip + pelvis, unilatera l, 2 or 3 view 2023 024 [email or web address] [facility], [address], [address], [place], [address], 4 12:46:35 XR, hip, unilatera l, 2 or 3 view - 5 lthr p/o 2v 2023 024 [facility], [address], [place], [address], 4 13:14:08 XR, hip, unilatera l, 2 or 3 view - rm 301.[address] Blanc 2023 024 [facility], [address], [address], [place], [address], 4 15:53:53 XR, hip, unilatera l, 2 or 3 view - Recheck LTHR Guanaco, room 204 2023 024 [facility], [address], [address], [place], [address], 4 12:41:10 Medication Orders clindamyc in HCl 300 mg capsule 2023 [id number], [address], [place], [id number], 12:41:10 Patient TargetsNo targets recorded. Patient InstructionsNo instructions recorded. Reason for Referral None Reported. Results Created Date Observation Date Name Description Value Unit Range Abnormal Flag Note LastModifiedBy Organization Detail LastModifiedTime 01/07/2012/30/2023 imagi ng/di agnos tic resul t No observ ation record ed. [email or web address] Not Available 2023 13:58:01 02/27/20 24 02/27/2024 XR, hip, unila teral , 2 or 3 view http:/ [email or web address] ?Encry pted=s hAaTro YD8dLq bEUv6g %2BXZw aYqtaq 0bqfl% 2Fg9IQ a4ajBk vP9nXo QUaueC m3YtLR FvZlgJ JJ8mAn HZtai3 7t1959 AC0Kvb nmGVqD eUC8mr 84%3D INTERFACE [facility] [address], [place], [address], 02/27/2024 14:38:25 02/27/20 24 02/27/2024 XR, hip, unila teral , 2 or 3 view http:/ [email or web address] ?Encry pted=s hAaTro YD8dLq bEUv6g %2BXZw aYqtaq 0bqfl% 2Fg9IQ a4ajBk vP9nXo QUaueC m3YtLR FvZlgJ JJ8mAn HZtai3 6k6120 AC0Kvb nmGVqD eUC8mr 84%3D INTERFACE [facility] [address], [place], [address], 02/27/2024 14:38:27 04/02/20 24 04/02/2024 XR, hip, unila teral , 2 or 3 view http:/ [email or web address] ?Encry pted=s hAaTro YD8dLq bEUv6g %2BXZw aYqtaq 0bqfl% 2Fg9IQ a4ajBk vP9nXo QUaueC m3YtLR FvZlgJ JJ8mAn HZtai3 2u8454 AC0Kub XqGUaD eUC8mr 84%3D INTERFACE [facility] [address], [place], [address], 04/02/2024 11:04:54 04/02/20 24 04/02/2024 XR, hip, unila teral , 2 or 3 view http:/ [email or web address] ?Encry pted=s hAaTro YD8dLq bEUv6g %2BXZw aYqtaq 0bqfl% 2Fg9IQ a4ajBk vP9nXo QUaueC m3YtLR FvZlgJ JJ8mAn HZtai3 9s8808 AC0Kub XqGUaD eUC8mr 84%3D INTERFACE [facility] [address], [place], [address], 04/02/2024 11:04:56 06/05/20 24 06/05/2024 XR, hip + pelvi s, unila teral , 2 or 3 view http:/ [email or web address] ?Encry pted=s hAaTro YD8dLq bEUv6g %2BXZw aYqtaq 0bqfl% 2Fg9IQ a4ajBk vP9nXo QUaueC m3YtLR FvZlgJ JJ8mAn HZtai3 1u1147 AC0Kra HSNVKT eUC8mr 84%3D INTERFACE [facility] [address], [place], [address], 06/05/2024 10:17:51 06/05/20 24 06/05/2024 XR, hip + pelvi s, unila teral , 2 or 3 view http:/ [email or web address] ?Encry pted=s hAaTro YD8dLq bEUv6g %2BXZw aYqtaq 0bqfl% 2Fg9IQ a4ajBk vP9nXo QUaueC m3YtLR FvZlgJ JJ8mAn HZtai3 3b6486 AC0Kra HSNVKT eUC8mr 84%3D INTERFACE [facility] [address], [place], [address], 06/05/2024 10:17:53 11/20/19 25 11/20/2024 XR, knee, 4 or more view http:/ [email or web address] ?Encry pted=s hAaTro YD8dLq bEUv6g %2BXZw aYqtaq 0bqfl% 2Fg9IQ a4ajBk vP9nXo QUaueC m3YtLR FvZlg JJ8mAn HZtai3 0o7882 AC0Kqb HuFUqC iKiQtr MwF INTERFACE [facility] [address], [place], [address], 11/20/2024 14:05:21 11/20/19 25 11/20/2024 XR, knee, 4 or more view http:/ [email or web address] ?Encry pted=s hAaTro YD8dLq bEUv6g %2BXZw aYqtaq 0bqfl% 2Fg9IQ a4ajBk vP9nXo QUaueC m3YtLR FvZlgJ JJ8mAn HZtai3 8r0658 AC0Kqb HuFUqC iKiQtr MwF INTERFACE [facility] [employer] [address], [place], [address], 11/20/2024 14:05:23 11/24/19 25 11/24/2024 XR, knee, 4 or more view No observ ation record ed. BARCODE [facility] [address], [place], [address], 11/24/2024 17:02:18 11/25/19 25 11/24/2024 XR, knee, 4 or more view No observ ation record ed. BARCODE [facility] [address] [facility] [facility] [address], [place], [address], 11/25/2024 10:54:44 Result Notes Documentation Provider Name and Address Organization Details Recorded Time Xr, Hip, Unilateral, 2 Or 3 View : [email or web address] Encrypted=hjGdSwcJX1yNmaP Uv6g%2ZGPigUypzc3homb%2Fg 8OBv9amIamG9aBsIKnlrVj9Vc PSXcJemPXL9jSzFDgpk29h711 5LA6QzdhsBUdRnNW3mq75%3D Not Available [facility] 02/27/2024 14:3 8:25 Xr, Hip, Unilateral, 2 Or 3 View : [email or web address] Encrypted=qhXzNkrUW9sHcoI Uv6g%8NHPjxGvdjn1vsrl%2Fg 3BRk6aoInkJ7mInHCzdqGr3Oe UMGuVmsRAK2bQhQKyzc93i539 4BZ4ZfsonHRuBbCA3zg35%3D Not Available [facility] 02/27/2024 14:3 8:27 Xr, Hip, Unilateral, 2 Or 3 View : [email or web address] Encrypted=scNyJaeJB5vWuzU Uv6g%8MONybItaht3ujrf%2Fg 1UOs0ugInjD2xIlHGiheTw3Dz OZQfCjdTPZ9iGaVHexd82n580 5NA9BdvZvWDuUkTR7uw77%3D Not Available [facility] 04/02/2024 11:0 4:55 Xr, Hip, Unilateral, 2 Or 3 View : [email or web address] Encrypted=yoMkJodOG1wXpxU Uv6g%9BZHviJsxnh7fnwc%2Fg 3ZKq0kuAlaV1zYoCHxleZl9Qt FGPfPznBXX2uElLHeos16l138 3XW2MfmRvGFhMgTX1jf96%3D Not Available [facility] 04/02/2024 11:0 4:56 Xr, Hip + Pelvis, Unilateral, 2 Or 3 View : [email or web address] Encrypted=ysToExtJB1zObeP Uv6g%3DVUmxJkggh4vtyy%2Fg 5TSr5goLwoS9nFhDApxdPt5Rh WTGxJbqOTL4oGzEXqca48z647 9WU6HfdEWHDXOqGX6sq98%3D Not Available [facility] 06/05/2024 10:1 7:52 Xr, Hip + Pelvis, Unilateral, 2 Or 3 View : [email or web address]? Encrypted=paQxJymIO9uBptV Uv6g%0IBCryPukwp5qnma%2Fg 2UDe1fiAzwC2oPnHZmhbPo0Wy BXZjNgqPOL0wJsHYemp64x051 2NO9QwgJGGPYQmGJ1gs36%3D Not Available [facility] 06/05/2024 10:1 7:54 Xr, Knee, 4 Or More View : [email or web address] Encrypted=rmYpEgzLI6fTmiS Uv6g%8ETUfnQqaam7obsa%2Fg 3MMq5vuLptW2xBlINxrtPe5Iv IXAcJxvZPI8fFtQKpwn67y145 4FO4OeiSzDInVbOnQxsXeV Not Available [facility] 11/20/2024 14:05: 22 Xr, Knee, 4 Or More View : [email or web address] Encrypted=giUxFcbBC2pKtgA Uv6g%1GIIndFritr4huht%2Fg 9IQm7exXxzM3gAmOFxpvIb8Ke WMFwLldSCH4rTbWTont39j859 3TH8FdeSwYLaEmFfCvvSlU Not Available [facility] 11/20/2024 14:05: 24 Problems Name Problem SNOMED Code Status Onset Date Resolution Date Notes Provider Name and Address Organization Details Recorded Time No complaints 498877407 Active Status : 'A'; Not Available [facility] 4 09:16:40 Problem Notes None recorded. Procedures Surgical History Date Name Laterality Status Provider Name and Address Organization Details Recorded Time 5 JZKNEE INJ completed Ash Zendejas PA-C [address], [place], [address], [facility] 11/20/2024 14:13:42 4 67781 Therapeutic Exercise (1:1) cancelled Minh Pyser, PT [address], [place], [address], [facility] 01/14/2024 21:00:32 4 38113: Hot or Cold Pack cancelled Minh Pyser, PT [address], [place], [address], [facility] 01/14/2024 21:00:32 4 64351 Therapeutic Exercise (1:1) cancelled Minh Pyser, PT [address], [place], [address], [facility] 01/11/2024 08:48:08 4 13919: Hot or Cold Pack cancelled Minh Pyser, PT [address], [place], [address], [facility] 01/11/2024 08:48:08 4 58296 Therapeutic Exercise (1:1) completed Minh Pyser, PT [address], [place], [address], [facility] 01/06/2024 15:56:19 4 11566: Hot or Cold Pack completed Minh Pyser, PT [address], [place], [address], [facility] 01/06/2024 15:56:39 4 89000 Therapeutic Exercise (1:1) completed Amanda Jara, DPT [address], [place], [address], [facility] 01/05/2024 11:19:42 4 78834: Moderate complexity PT eval completed Amanda Jara, DPT [address], [place], [address], [facility] 01/05/2024 11:19:38 4 Hip Surgery completed HOWARD OQUENDO [facility] 04/02/2024 10:49:45 Ankle/Foot Surgery completed HOWARD OQUENDO [facility] 04/02/2024 10:49:45 Imaging Results None recorded. Procedure Notes None recorded. Medical Equipment None Reported. Allergies Allergen ID Allergen Name Allergen Category Reaction Reaction Severity Criticality Documentation Date Start Date Code Code System Note Provider Name and Address Organization Details Recorded Time 73535 Product containin g penicilli n (product) medicatio n Not available Not available Not available 12/16/20232018 91220 8001 SNOMED Not Available [facility] 13:27:49 Medications Name Sig Start Date Stop Date Status Note LastModified by Organization Details LastModified Time losartan 50 mg tablet TAKE 1 TABLET BY MOUTH EVERY DAY active Not Available Not Available No t Available celecoxib 200 mg capsule 04/02 completed Not Available Not Available Not Available cyclobenzap rine 10 mg tablet TAKE 1 TABLET BY MOUTH THREE TIMES DAILY 02/20 completed Not Available Not Available Not Available atorvastati n 40 mg tablet TAKE 1 TABLET BY MOUTH EVERY DAY active Not Available Not Available No t Available silver sulfadiazin e 1 % topical cream APPLY A SMALL AMOUNT TO WOUND DAILY 02/20 completed Not Available Not Available Not Available doxycycline hyclate 100 mg capsule TAKE 1 CAPSULE BY MOUTH TWICE DAILY 02/20 completed Not Available Not Available Not Available clindamycin HCl 300 mg capsule TAKE 2 CAPSULES BY MOUTH 1 HOUR BEFORE DENTAL PROCEDURE 02/20 completed Not Available Not Available Not Available azithromyci n 250 mg tablet TAKE 2 TABLETS BY MOUTH FOR 1 DAY THEN TAKE 1 TABLET BY MOUTH DAILY FOR 4 DAYS 02/20 completed Not Available Not Available Not Available meloxicam 15 mg tablet TAKE 1 TABLET BY MOUTH EVERY DAY WITH FOOD NEEDED FOR PAIN 02/20 completed Not Available Not Available Not Available ondansetron HCl 4 mg tablet TAKE 1 TABLET BY MOUTH EVERY 8 HOURS NEEDED FOR NAUSEA 02/20 completed Not Available Not Available Not Available tramadol 50 mg tablet TAKE 1 TABLET BY MOUTH TWICE DAILY NEEDED FOR PAIN. DO NOT DRIVE WHILE TAKING THIS MEDICATIO N 02/20 completed Not Available Not Available Not Available levothyroxi ne 75 mcg tablet TAKE 1 TABLET BY MOUTH EVERY DAY active Not Available Not Available No t Available Nexium 20 mg capsule,del ayed release Take 1 capsule every day by oral route. active Not Available Not Available No t Available benzonatate 100 mg capsule TAKE 1 CAPSULE BY MOUTH THREE TIMES DAILY NEEDED FOR COUGH 04/02 completed Not Available Not Available Not Available nitrofurant oin macrocrysta l 100 mg capsule TAKE 1 CAPSULE BY MOUTH TWICE DAILY 02/20 completed Not Available Not Available Not Available hydrochloro thiazide 12.5 mg capsule TAKE ONE CAPSULE BY MOUTH ONCE A DAY active Not Available Not Available No t Available gabapentin 100 mg capsule TAKE 1 CAPSULE BY MOUTH FOUR TIMES DAILY NEEDED FOR PAIN active Not Available Not Available No t Available methylpredn isolone 4 mg tablets in a dose pack FOLLOW PACKAGE DIRECTION S 02/20 completed Not Available Not Available Not Available meclizine 25 mg chewable tablet TAKE 1 BY MOUTH DAILY FOR DIZZINESS active Not Available Not Available No t Available nitrofurant oin monohydrate /macrocryst als 100 mg capsule TAKE 1 CAPSULE BY MOUTH TWICE DAILY FOR 7 DAYS active Not Available Not Available No t Available oxycodone 10 mg tablet TAKE 1 TABLET BY MOUTH FOUR TIMES DAILY FOR 7 DAYS NEEDED 02/20 completed Not Available Not Available Not Available oxycodone HCl-oxycodo ne-ASA Take 1 tablet every [address] WHILE TAKING THIS MEDICATIO N 11/20 completed Statu s: 'Curr ent'; Not Available Not Available Not Available Vitals Date Recorded Body height Body mass index (BMI) Body weight Provider Name and Address Organization Details Last Updated DateTime 11/20/2024 175.26 cm 41.1 kg/m2 119978.68 g Willie Menard [facility] 11/20/2024 13:55:50 Date Recorded Body height Body mass index (BMI) Body weight Provider Name and Address Organization Details Last Updated DateTime 01/28/2024 175.26 cm 39.9 kg/m2 965873.94 g ANDRAE ESQUIVEL [facility] 01/28/2024 11:45:25 Date Recorded Body height Provider Name an d Address Organization Details Last Updated DateTime 02/27/2024 175.26 cm JIMMY MALDONADO [facility] 02/27/2024 14:32:55 Date Recorded Body height Body mass index (BMI) Body weight Provider Name and Address Organization Details Last Updated DateTime 04/02/2024 175.26 cm 41.1 kg/m2 633160.68 g HOWARD OQUENDO [facility] 04/02/2024 10:49:54 Date Recorded Body height Body mass index (BMI) Body weight Provider Name and Address Organization Details Last Updated DateTime 06/05/2024 175.26 cm 41.1 kg/m2 044728.68 g Willie Menard [place] [facility] [place] [facility] 06/05/2024 09:59:17 Social History Question Answer Notes LastModified by Organizat ion Details LastModified Time Tobacco Smoking Status Former Smoker HOWARD DIANARamila colmenares [place] [facility] [place] [facility] 04/02/2024 10:49:40 When Did You Quit Smoking? 16+yearssinc elastcigaret te Information not available 04/02/2024 What Is Your Relationship Status? Information not available 04/02/2024 Sex: Unknown Functional Status Question Answer Note LastModified by Organizat ion Details LastModified Time How many times per week do you consume alcohol? Less than 1 time per week Information not available 04/02/2024 Do you use any illicit or recreational drugs? Yes Information not available 04/02/2024 Do you or have you ever used any other forms of tobacco or nicotine? No Information not available 04/02/2024 Mental Status None recorded. Family History Nothing Reported. Medical History Condition Response Acid Reflux (GERD) Y Thyroid Problems Y Gynecological HistoryNo gynecological history recorded. Obstetrics History GPAL:G 0 P 0 0 0 0 Past Encounters Encounter ID Performer Location Encounter Start Date Encounter Closed Date Diagnosis/Indication Diagnosis SNOMED-CT Code Diagnosis ICD10 Code Diagnosis Note [id number] Amanda Jara, DPT [facility] [address] [place] [address] 01/03/2024 11:00:41 01/03/2024 14:23:59 Aftercare 920092530 Z47.1 History of total replacement of left hip joint 3501990100 484898 Z96.453 [id number] Minh Gordon, PT [facility] [address] [place] [address] 01/06/2024 15:03:45 01/06/2024 16:18:55 Aftercare 517856678 Z47.1 History of total replacement of left hip joint 8244061156 325166 Z96.803 [id number] Rigoberto Theodore PA-C [facility] [address] [place] [address] 01/14/2024 13:54:14 02/03/2024 13:03:20 Pain of left hip joint 9496775945 60507 M25.552 Osteoarthr itis of left hip joint 9627513960 93836 M16.12 [id number] Samuel Bui PA-C [facility] [address] [place] [address] 01/28/2024 10:53:56 02/18/2024 12:41:03 Aftercare 884299383 Z47.31 History of total replacement of right hip joint 3635554118 56464 Z96.641 History of total hip arthroplasty 1446873670 06 Z96.802 [id number] SHANELLE Daniel [address] [place] [address] 02/27/2024 14:30:22 03/24/2024 09:00:18 History of total replacement of left hip joint 9550656647 993142 Z96.605 [id number] Hamilton Blanc MD [facility] [address] [place] [address] 04/02/2024 10:13:44 04/28/2024 13:14:08 History of total replacement of left hip joint 1480632685 341110 Z96.954 [id number] Ash Zendejas PA-C [facility] [address] [place] [address] 06/05/2024 09:35:07 07/03/2024 12:26:24 Trochanteric bursitis of left hip 5727098802 52014 M70.62 [id number] Ash Zendejas PA-C [facility] [address] [place] [address] 11/20/2024 13:26:10 12/08/2024 14:37:49 Pain of knee region 3745116093 M25.561 M25.562 Health Concerns Section Related Observation LastModified by Organization Detai ls LastModified Time None Recorded Concern Status LastModified by Organization Details LastModified Time None Recorded Advance Directives Directive None Recorded Payers Insurance Date Sequence Insurance Name Policy Number Policy Fried Covered Member ID Fried Member ID Guarantor Name 12/08/[address] [facility] [employer] [id number] Darya Michelle [id number] Darya Navaleonsourav Notes Date Note Type Note Provider Name and Address Organization Details Recorded Time 01/28/2024 text/html I am seeing the patient today under the supervision of Dr. Edwards who was available but who did not see the patient. HPI: Patient comes in for follow-up, now 4 weeks status post right total hip arthroplasty. Happy with results. No significant complaints of pain.. No negative postoperative complications noted. Of note patient does need emergency tooth pulled tomorrow and will send antibiotics today for such. Past family, medical, social history and review of systems has been reviewed, updated and is located in the patient? s chart. Examination:The patient is well appearing and in no apparent distress. Alert and oriented x3. Gait is antalgic on the operative side. Examination hip has a healing surgical incision, . Appropriate postoperative edema, no erythema or warmth. Supple pain-free range of motion. . Calf is soft and nontender bilaterally. 4+/5 strength of hip flexion and extension. X-rays ordered, obtained and reviewed at [facility] . 2 views of the right hip were ordered obtained and independently reviewed today. Radiographs demonstrate a total joint arthroplasty with good interfaces and alignment. No evidence of any lysis or loosening. No acute fractures appreciated. Impression: 4 weeks Status post total hip arthroplasty Plan: Nature of the diagnosis discussed with the patient today. At this point patient doing well 4 weeks status post total hip arthroplasty. Recommended continued to ice and elevate. Transferred to home stretching and strengthening program. Any increased pain and discomfort redness drainage loss of motion to contact our office, otherwise follow up in 2 months for repeat evaluation [facility] speech recognition sock lining examiner software was used to create portions of this document. An attempt at proofreading has been made to minimize errors. Please call for corrections. Samuel Bui PA-C [address] [place], [place] [address] [address], [place], [address], [facility] 01/28/2024 12:41:06 02/27/2024 text/html I am seeing the patient today under the supervision of Dr. Mae who was available but who did not see the patient. HPI: Patient comes in for follow-up, now 8 weeks status post left total hip arthroplasty. Happy with results. No significant complaints of pain.. No negative postoperative complications noted. 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 Past family, medical, social history and review of systems has been reviewed, updated and is located in the patient? s chart. Examination:The patient is well appearing and in no apparent distress. Alert and oriented x3. Gait is antalgic on the operative side. Examination hip has a healing surgical incision, . Appropriate postoperative edema, no erythema or warmth. Supple pain-free range of motion. . Calf is soft and nontender bilaterally. 4+/5 strength of hip flexion and extension. X-rays ordered, obtained and reviewed at [facility] . 2 views of the left hip were ordered obtained and independently reviewed today. Radiographs demonstrate a total joint arthroplasty with good interfaces and alignment. No evidence of any lysis or loosening. No acute fractures appreciated. Impression: 8 weeks Status post total hip arthroplasty Plan: Nature of the diagnosis discussed with the patient today. At this point patient doing well 8 weeks status post total hip arthroplasty. Continue home stretching and strengthening program. Any increased pain and discomfort redness drainage loss of motion to contact our office, otherwise follow up in 1 month for repeat evaluation updated work note given. [facility] speech recognition sock lining examiner software was used to create portions of this document. An attempt at proofreading has been made to minimize errors. Please call for corrections. Samuel Bui PA-C [address], [place], [address], [facility] 02/27/2024 15:44:25 OBGyn Episode No OBEpisode recorded.
== END 2025-03-30 15:12 | disposition home or self-care (01) ==
LOC: HO.MAMMO 15:11
PROVIDERS: PCP Physician Assistant; Visit Provider Physician Assistant
DX: Z12.31 Encounter for screening mammogram for malignant neoplasm of breast (principal)
CPT/HCPCS: 77063; 77067

== ENCOUNTER → 2025-03-30 15:30 | Outpatient (BNV) | payer BC, SELFPAY | PROVIDERS: PCP Physician Assistant; Visit Provider Internal Medicine | DX: Z12.31 Encounter for screening mammogram for malignant neoplasm of breast (principal) | CPT/HCPCS: 77063; 77067 ==

== ENCOUNTER 2025-04-20 07:40 | Outpatient (REF) | payer BC, SELFPAY ==
--- OUTSIDE RECORDS SUMMARY | 2025-04-20 07:42 | XMS_ITS | Data Portability ---
Author Organization [facility] Aakash Marshall [facility], [facility] Address [address] [place] [address] Assessment Encounter Date Assessment Date Assessment LastModified [...] and down stairs sitting standing. Problems ambulating. Fhfh-htb-wxnnddk medications are helping somewhat but not significantly. Pain is constant aching sometimes sharp pain with giving out sensations. Past family, medical, social history and review of systems has been reviewed, updated and is located in the patient s chart. Examination: The patient is well [...] is noted. mild lateral ligamentous laxity. Negative Jun s. Calf is supple and nontender. Neurovascularly intact [...] [facility], [address], [place], [address], 5 15:14:47 XR, hip + pelvis, unilatera l, 2 or 3 view 2023 024 [email or web address] [facility], [address], [place], [address], 4 12:46:35 XR, hip, unilatera l, 2 or 3 view - 5 lthr p/o 2v 2023 024 [email or web address] [facility], [address], [place], [address], 4 13:14:08 XR, hip, unilatera l, 2 or 3 view - rm 301.[address] Blanc 2023 024 [facility], [address], [place], [address], 4 15:53:53 XR, hip, unilatera l, 2 or 3 view - Recheck LTHR Guanaco, room 204 2023 024 [facility] Office, [address], [place], [address], 4 12:41:10 Medication Orders clindamyc in HCl [address] [id number], [address], [place], [id number], 4 12:41:10 Patient TargetsNo targets recorded. Patient InstructionsNo instructions recorded. Reason for Referral None Reported. Results Created Date Observation Date Name Description Value Unit Range Abnormal Flag Note LastModifiedBy Organization Detail LastModifiedTime 01/07/20 24 12/30/2023 imagi ng/di agnos tic resul t No observ ation record ed. [email or web address] Not Available 2023 13:58:01 02/27/20 24 02/27/2024 XR, hip, unila teral , 2 or 3 view [email or web address] ?Encry pted=s hAaTro YD8dLq bEUv6g %2BXZw aYqtaq 0bqfl% 2Fg9IQ a4ajBk vP9nXo QUaueC m3YtLR FvZlgJ JJ8mAn HZtai3 2i5138 AC0Kvb nmGVqD eUC8mr 84%3D INTERFACE [facility] [address], [place], [address], 02/27/2024 14:38:25 02/27/20 24 02/27/2024 XR, hip, unila teral , 2 or 3 view [email or web address] ?Encry pted=s hAaTro YD8dLq bEUv6g %2BXZw aYqtaq 0bqfl% 2Fg9IQ a4ajBk vP9nXo QUaueC m3YtLR FvZlgJ JJ8mAn HZtai3 4m2012 AC0Kvb nmGVqD eUC8mr 84%3D INTERFACE [facility] [address], [place], [address], 02/27/2024 14:38:27 04/02/20 24 04/02/2024 XR, hip, unila teral , 2 or 3 view [email or web address]:/ [email or web address] ?Encry pted=s hAaTro YD8dLq bEUv6g %2BXZw aYqtaq 0bqfl% 2Fg9IQ a4ajBk vP9nXo QUaueC m3YtLR FvZlgJ JJ8mAn HZtai3 2e3681 AC0Kub XqGUaD eUC8mr 84%3D INTERFACE [facility] [address], [place], [address], 04/02/2024 11:04:54 04/02/20 24 04/02/2024 XR, hip, unila teral , 2 or 3 view [email or web address]:/ [email or web address] ?Encry pted=s hAaTro YD8dLq bEUv6g %2BXZw aYqtaq 0bqfl% 2Fg9IQ a4ajBk vP9nXo QUaueC m3YtLR FvZlgJ JJ8mAn HZtai3 3h8898 AC0Kub XqGUaD eUC8mr 84%3D INTERFACE [facility] [address], [place], [address], 04/02/2024 11:04:56 06/05/20 24 06/05/2024 XR, hip + pelvi s, unila teral , 2 or 3 view [email or web address]:/ [email or web address] ?Encry pted=s hAaTro YD8dLq bEUv6g %2BXZw aYqtaq 0bqfl% 2Fg9IQ a4ajBk vP9nXo QUaueC m3YtLR FvZlgJ JJ8mAn HZtai3 8z6534 AC0Kra HSNVKT eUC8mr 84%3D INTERFACE [facility] [address], [place], [address], 06/05/2024 10:17:51 06/05/20 24 06/05/2024 XR, hip + pelvi s, unila teral , 2 or 3 view [email or web address]:/ [email or web address] ?Encry pted=s hAaTro YD8dLq bEUv6g %2BXZw aYqtaq 0bqfl% 2Fg9IQ a4ajBk vP9nXo QUaueC m3YtLR FvZlgJ JJ8mAn HZtai3 7r2371 AC0Kra HSNVKT eUC8mr 84%3D INTERFACE [facility] [address], [place], [address], 06/05/2024 10:17:53 11/20/19 25 11/20/2024 XR, knee, 4 or more view [email or web address]:/ [email or web address] ?Encry pted=s hAaTro YD8dLq bEUv6g %2BXZw aYqtaq 0bqfl% 2Fg9IQ a4ajBk vP9nXo QUaueC m3YtLR FvZlgJ JJ8mAn HZtai3 9i9328 AC0Kqb HuFUqC iKiQtr MwF INTERFACE [facility] [address], [place], [address], 11/20/2024 14:05:21 11/20/19 25 11/20/2024 XR, knee, 4 or more view [email or web address]:/ [email or web address] ?Encry pted=s hAaTro YD8dLq bEUv6g %2BXZw aYqtaq 0bqfl% 2Fg9IQ a4ajBk vP9nXo QUaueC m3YtLR FvZlgJ JJ8mAn HZtai3 3e7334 AC0Kqb HuFUqC iKiQtr MwF INTERFACE [facility] [address], [place], [address], 11/20/2024 14:05:23 11/24/19 25 11/24/2024 XR, knee, 4 or more view No observ ation record ed. [facility] [address], [place], [address], 11/24/2024 17:02:18 11/25/19 25 11/24/2024 XR, knee, 4 or more view No observ ation record ed. [facility] [address], [place], [address], 11/25/2024 10:54:44 Result Notes Documentation Provider Name and Address Organization Details Recorded Time Xr, Hip, Unilateral, 2 Or 3 View : [email or web address] Encrypted=ahEkIzvJQ5jFmxQ Uv6g%0IAEygVtwnf2hzsz%2Fg 6WXu4glJexY7dMiQBihcNd9Dm SPYjSqyLCA2nGpVYrqw37h944 9RM6BarciJQqPbVF1ze02%3D Not Available [facility] 02/27/2024 14:3 8:25 Xr, Hip, Unilateral, 2 Or 3 View : [email or web address] Encrypted=qaWsLwdEZ3fUhlC Uv6g%6DKYczHyooe3fqjx%2Fg 8GYu0ebZeoT4jRdLQsumGa6Bq UUApAtiGON9sYqPWnhi84u954 0YX6XzzgeVRrIeAK7kd99%3D Not Available [facility] 02/27/2024 14:3 8:27 Xr, Hip, Unilateral, 2 Or 3 View : [email or web address] Encrypted=slEdZcfAR7yDinN Uv6g%9ZXLalTdyvv7amdj%2Fg 1GCu0hlXiqE8cFmLEkgfRi4Wv HDLjJizMOW7tExBAitz46s577 8WU2HsfReDHnTxYM6yr60%3D Not Available [facility] 04/02/2024 11:0 4:55 Xr, Hip, Unilateral, 2 Or 3 View : [email or web address] Encrypted=yrRtGowSN3hQpzU Uv6g%2PEKcmYdwxg0yvlw%2Fg 3ATu3quUnpY7yMpXCrroLk6Wj PWLtRptWOC1jVjGIeyh09t025 7ZQ9AysEjPQoBdJF5dj64%3D Not Available [facility] 04/02/2024 11:0 4:56 Xr, Hip + Pelvis, Unilateral, 2 Or 3 View : [email or web address] Encrypted=ifOpYlnLQ9qTaqB Uv6g%8GAIalCsguo4rhjy%2Fg 1XZt9dwFiaW9vPnAXnewWc9Ga VMCpDymFAA5aSzQZeln51o029 5EE8AtoJBXQHPsIY8yv58%3D Not Available [facility] 06/05/2024 10:1 7:52 Xr, Hip + Pelvis, Unilateral, 2 Or 3 View : [email or web address] Encrypted=omLfIcgDQ5zIusC Uv6g%5FMVluAgpdi2rior%2Fg 4RCd4dxAykA5kMcLJnfuGs1Br AMNkUqvJXE1rTjWEvss87f048 2PA9RpqMYLPKInNN3qo42%3D Not Available [facility] 06/05/2024 10:1 7:54 Xr, Knee, 4 Or More View : [email or web address] Encrypted=nwVgRswBT4jSpsK Uv6g%4ECCwsPones0qezy%2Fg 7RMk7zdNzoL6iInMErmiEy6Di RNMjHveTKI9qZqWSpik13t967 0WI9TleOvZNnZlSoAigPwF Not Available [facility] 11/20/2024 14:05: 22 Xr, Knee, 4 Or More View : [email or web address] Encrypted=cbXdVmwDL9xMciN Uv6g%0EQXggTicov9zewp%2Fg 7RYj0giUtpN9zNmCUfzbOq3Xk OYPuGybEAA6qFhPQdid45i852 6RL9UbvBjBXkPcOpJnfDrF Not Available [facility] 11/20/2024 14:05: 24 Problems Name Problem SNOMED Code Status Onset Date Resolution Date Notes Provider Name and Address Organization Details Recorded Time No complaints 376360953 Active Status : 'A'; Not Available [facility] 09:16:40 Problem Notes None recorded. Procedures Surgical History Date Name Laterality Status Provider Name and Address Organization Details Recorded Time 5 JZKNEE INJ completed Ash Zendejas PA-C [address], [place], [address], [facility] 11/20/2024 14:13:42 4 79928 Therapeutic Exercise (1:1) cancelled Minh Pyser, PT [address], [place], [address], [facility] 01/14/2024 21:00:32 4 95888: Hot or Cold Pack cancelled Minh Pyser, PT [address], [place], [address], [facility] 01/14/2024 21:00:32 4 94207 Therapeutic Exercise (1:1) cancelled Minh Pyser, PT [address], [place], [address], [facility] 01/11/2024 08:48:08 4 21554: Hot or Cold Pack cancelled Minh Pyser, PT [address], [place], [address], [facility] 01/11/2024 08:48:08 4 43274 Therapeutic Exercise (1:1) completed Minh Pyser, PT [address], [place], [address], [facility] 01/06/2024 15:56:19 4 24075: Hot or Cold Pack completed Minh Pyser, PT [address], [place], [address], [facility] 01/06/2024 15:56:39 4 19273 Therapeutic Exercise (1:1) completed Amanda Jara, DPT [address] [facility], [place], [address], [facility] 01/05/2024 11:19:42 4 36070: Moderate complexity PT eval completed Amanda Jara, DPT [address], [place], [address], [facility] 01/05/2024 11:19:38 4 Hip Surgery completed HOWARD OQUENDO [facility] 04/02/2024 10:49:45 Ankle/Foot Surgery completed HOWARD OQUENDO [facility] 04/02/2024 10:49:45 Imaging Results None recorded. Procedure Notes None recorded. Medical Equipment None Reported. Allergies Allergen ID Allergen Name Allergen Category Reaction Reaction Severity Criticality Documentation Date Start Date Code Code System Note Provider Name and Address Organization Details Recorded Time 55112 Product containin g penicilli n (product) medicatio n Not available Not available Not available 12/16/20232018 48532 8001 SNOMED Not Available [facility] 13:27:49 Medications Name Sig Start Date Stop [...] Updated DateTime 11/20/2024 175.26 cm 41.1 kg/m2 806368.68 g Willie Menard [facility] 11/20/2024 13:55:50 Date Recorded Body height Body mass index (BMI) Body weight Provider Name and Address Organization Details Last Updated DateTime 01/28/2024 175.26 cm 39.9 kg/m2 719367.94 g ANDRAE ESQUIVEL [facility] 01/28/2024 11:45:25 Date Recorded Body height Provider Name an d Address Organization Details Last Updated DateTime 02/27/2024 175.26 cm JIMMY MALDONADO [facility] 02/27/2024 14:32:55 Date Recorded Body height Body mass index (BMI) Body weight Provider Name and Address Organization Details Last Updated DateTime 04/02/2024 175.26 cm 41.1 kg/m2 096810.68 g HOWARD OQUENDO [facility] 04/02/2024 10:49:54 Date Recorded Body height Body mass index (BMI) Body weight Provider Name and Address Organization Details Last Updated DateTime 06/05/2024 175.26 cm 41.1 kg/m2 616692.68 g Willie Menard [place] [facility] 06/05/2024 09:59:17 Social History Question Answer Notes LastModified by Organizat ion Details LastModified Time Tobacco Smoking Status Former Smoker HOWARD ROSALESGABRIELLA colmenares [facility] 04/02/2024 10:49:40 When Did You Quit Smoking? [...] History Nothing Reported. Medical History Condition Response Thyroid Problems Y Acid Reflux (GERD) Y Gynecological HistoryNo gynecological history recorded. Obstetrics History GPAL:G 0 P 0 0 0 0 Past Encounters Encounter ID Performer Location Encounter Start Date Encounter Closed Date Diagnosis/Indication Diagnosis SNOMED-CT Code Diagnosis ICD10 Code Diagnosis Note [id number] Amanda Jara, DPT [facility] [address] [place] [address] 01/03/2024 11:00:41 01/03/2024 14:23:59 Aftercare 026768902 Z47.1 History of total replacement of left hip joint 4352242865 002496 Z96.746 [id number] Minh Gordon, PT [facility] [address] [place] [address] 01/06/2024 15:03:45 01/06/2024 16:18:55 Aftercare 378825071 Z47.1 History of total replacement of left hip joint 1894119374 667347 Z96.505 [id number] Rigoberto Theodore PA-C [facility] [address] [place] [address] 01/14/2024 13:54:14 02/03/2024 13:03:20 Pain of left hip joint 1939582770 81380 M25.552 Osteoarthr itis of left hip joint 4127161728 64612 M16.12 [id number] SHANELLE Daniel [address] [place] [address] 01/28/2024 10:53:56 02/18/2024 12:41:03 Aftercare 417442556 Z47.31 History of total replacement of right hip joint 8630445879 62715 Z96.641 History of total hip arthroplasty 1258773810 06 Z96.997 [id number] SHANELLE Daniel [address] [place] [address] 02/27/2024 14:30:22 03/24/2024 09:00:18 History of total replacement of left hip joint 5868652819 260770 Z96.282 [id number] Hamilton Blanc MD [facility] [address] [place] [address] 04/02/2024 10:13:44 04/28/2024 13:14:08 History of total replacement of left hip joint 4764426263 046103 Z96.692 [id number] Ash Zendejas PA-C [facility] [address] [place] [address] 06/05/2024 09:35:07 07/03/2024 12:26:24 Trochanteric bursitis of left hip 2488649186 28992 M70.62 [id number] Ash Zendejas PA-C [facility] [address] [place] [address] 11/20/2024 13:26:10 12/08/2024 14:37:49 Pain of knee region 6873447982 M25.561 M25.562 Health Concerns Section Related Observation LastModified by Organization Detai ls LastModified Time None Recorded Concern Status LastModified by Organization Details LastModified Time None Recorded Advance Directives Directive None Recorded Payers Insurance Date Sequence Insurance Name Policy Number Policy Fried Covered Member ID Fried Member ID Guarantor Name 12/08/2024 1 [facility] [employer] [id number] Darya Michelle [id number] Darya Michelle Notes Date Note Type Note Provider Name [...] reviewed, updated and is located in the patient s chart. Examination:The patient is well appearing and in no apparent distress. Alert and oriented x3. Gait is antalgic on the operative side. Examination hip has a healing surgical incision, . Appropriate postoperative edema, no erythema or warmth. Supple pain-free range of motion. . Calf is soft and nontender bilaterally. 4+/5 strength of hip flexion and extension. X-rays ordered, obtained and reviewed at [facility] . 2 views of the right [...] up in 2 months for repeat evaluation [facility] speech recognition pm technician software was used to create portions of this document. An attempt at proofreading has been made to minimize errors. Please call for corrections. Samuel Bui PA-C [address] [place] [address], [place], [address], 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 Past family, medical, social history and review of systems has been reviewed, updated and is located in the patient s chart. Examination:The patient is well appearing and in no apparent distress. Alert and oriented x3. Gait is antalgic on the operative side. Examination hip has a healing surgical incision, . Appropriate postoperative edema, no erythema or warmth. Supple pain-free range of motion. . Calf is soft and nontender bilaterally. 4+/5 strength of hip flexion and extension. X-rays ordered, obtained and reviewed at [facility] . 2 views of the left [...] for repeat evaluation updated work note given. [facility] speech recognition pm technician software was used to create portions of this document. An attempt at proofreading has been made to minimize errors. Please call for corrections. Samuel Bui PA-C [address], [place], [address], [facility] 02/27/2024 15:44:25 OBGyn Episode No OBEpisode recorded.
[2025-04-20 10:31] LABS: Anion Gap 9 (12-20); Blood Urea Nitrogen 13 mg/dL (9-16); Calcium 9.2 mg/dL (8.4-10.2); Carbon Dioxide 29 mmol/L (22-29); Chloride 108 mmol/L (96-108); Cholesterol 148 mg/dL (<200); Estimated Glomerular Filt Rate > 60; HDL Cholesterol 47 mg/dL (>40); Potassium 4.4 mmol/L (3.3-5.1); Sodium 142 mmol/L (135-145); Triglycerides 70 mg/dL (<150)
== END 2025-04-20 07:41 | disposition home or self-care (01) ==
LOC: HO.10HDL 07:40
PROVIDERS: Visit Provider Physician Assistant
DX: E78.00 Pure hypercholesterolemia, unspecified (principal); I10 Essential (primary) hypertension
CPT/HCPCS: 36415; 80048; 80061

== ENCOUNTER 2025-05-05 09:05 | Outpatient (AMB) | payer BC, SELFPAY ==
[2025-05-05 08:38] VITALS: BP 124/70; PULSE 62; TEMP 36.4; O2SAT 97; BMI 41.4
--- NOTE | 2025-05-05 08:38 | MHC.PC.OV ---
Vital Signs 05/05/25 08:38 Height 5 ft 8 in Weight 272 lb BMI 41.4 BP 124/70 Blood Pressure Location Lt brachial Position Sitting Pulse 62 Pulse Source Pulse Oximeter Temp 97.6 F Temp Source Axillary Pulse Oximetry (%) 97 Oxygen Delivery Method Room Air Intake Visit Reasons: Annual Physical and rx refills Boiler Tube Blower Required: No Accompanied by: Self / Same As Patient Allergies Penicillins Allergy (Severe, Verified 05/05/25 09:40) STOPS BREATHING penicillin G Allergy (Unknown, Verified 05/05/25 09:40) hard time breathing Medication List - Last Reconciled 05/05/25 by Arthur Dietz MD atorvastatin 80 mg PO DAILY esomeprazole magnesium (Nexium) 20 mg PO DAILY levothyroxine 75 mcg PO DAILY losartan 50 mg PO DAILY oxybutynin chloride ER 5 mg PO DAILY Tobacco use date assessed: 05/05/25 Dental Screening Dental Screen Date: 05/05/25 Did you have a dental visit in the last 12 months?: Yes Did you have a dental problem in the last 6 months where you did not have access to dental care?: No PFSH Medical History Tubulovillous adenoma Urge incontinence History of alcohol abuse Morbid obesity Thyroid disease Elevated cholesterol HTN (hypertension) GERD (gastroesophageal reflux disease) Surgical History History of endometrial ablation Hx of vein stripping Hx of esophagogastroduodenoscopy Family History Mother No problems noted. Father No problems noted. Social History Housing: House Patient Tobacco Use Status: Former Tobacco user e-Cigarette/Vaping Use: Former Use service: No Current occupational status: employed Cognitive needs: No Hearing needs: No Vision needs: Yes (rx glasses) Questionnaire PHQ-9 Over the last 2 weeks, how often have you been bothered by any of the following problems? 1. Little interest or pleasure in doing things: not at all 2. Feeling down, depressed, or hopeless: not at all 3. Trouble falling or staying asleep, or sleeping too much: not at all 4. Feeling tired or having little energy: not at all 5. Poor appetite or overeating: not at all 6. Feeling bad about yourself - or that you are a failure or have let yourself or your family down: not at all 7. Trouble concentrating on things, such as reading the newspaper or watching television: not at all 8. Moving or speaking so slowly that other people could have noticed. Or the opposite - being so fidgety or restless that you have been moving around a lot more than usual: not at all 9. Thoughts that you would be better off or of hurting yourself in some way: not at all Total score: 0 Depression Screening Interpretation: Negative Depression Screening Done: Yes Source: Developed by Drs. Sami Mendez, Jeri Cabrera, Fermin Arevalo and colleagues, with an educational ascencion from [employer]. Thrive Questionnaire Date Thrive assessed: 05/05/25 I am a: Patient Within the past 12 months, did the food you bought not last and you didn't have the money to get more?: Never true Within the past 12 months, did you worry whether your food would run out before you got money to buy more?: Never true Do you have trouble paying for medicines?: No Do you have trouble getting transportation to medical appointments?: No Do you have trouble paying your heating and electricity bill?: No Do you have trouble taking care of your child, family member or friend?: No Do you have trouble with day-to-day activities such as bathing, preparing meals, shopping, managing finances, etc.?: No Are you currently unemployed and looking for a job?: No Are you interested in more education?: No THRIVE Score: 0 AUDIT C Alcohol Use Questionnaire (AUDIT-C) 1. How often do you have a drink containing alcohol?: Never 3. How often do you have six or more drinks on one occasion?: Never Total Score: 0 AXEL-7 AMB Questionnaire AXEL-7 Date AXEL - 7 assessed: 05/05/25 Feeling nervous, anxious, or on edge: 0 = Not at all Not being able to stop or control worryin = Not at all Worrying too much about different things: 0 = Not at all Trouble relaxin = Not at all Being so restless that it is hard to sit still: 0 = Not at all Becoming easily annoyed or irritable: 0 = Not at all Feeling afraid as if something awful might happen: 0 = Not at all Total AXEL-7 score (0-4 normal; 5-9 mild; 10-14 moderate; 15-21 severe): 0 Source: Developed by Drs. Sami Mendez, Jeri Cabrera, Fermin Arevalo and colleagues, with an educational ascencion from [employer]. Physical exam (Primary Care) Vital Signs: Last Vital Signs Temp 97.6 F 05/05/25 08:38 Pulse 62 05/05/25 08:38 BP 124/70 05/05/25 08:38 Pulse Ox 97 05/05/25 08:38 Oxygen Delivery Method Room Air 05/05/25 08:38 BMI result Body Mass Index 41.4 BMI Assessment/Plan discussion: High Tobacco/Smoking Status: Tobacco use Status Tobacco use date assessed 05/05/25 05/05/25 08:39 Patient Tobacco Use Status Former Tobacco user 05/05/25 08:39 e-Cigarette/Vaping Use Former Use 05/05/25 08:39 PHQ-9: PHQ-9 Score PHQ-9: Total score 0 05/05/25 09:18 Depression Screening Interpretation: Negative Thrive Assessment: Date of Thrive Assessment Date Thrive assessed 05/05/25 05/05/25 08:39 Coding Level of Care Code Est Pt Prev Care 40-64y(26178) Diagnoses AAA (abdominal aortic aneurysm) without rupture I71.4 HTN (hypertension) I10 Annual physical exam Z00.00 Assessment & Plan Assessment & Plan (1) AAA (abdominal aortic aneurysm) without rupture: Code(s): I71.4 - Abdominal aortic aneurysm, without rupture Category: Medical Plan: Stable condition (2) HTN (hypertension): Code(s): I10 - Essential (primary) hypertension Category: Medical Plan: BP is stable (3) Annual physical exam: Code(s): Z00.00 - Encounter for general adult medical examination without abnormal findings Plan History of Present Illness - The patient is a 64-year-old female presenting with wellness visit and weight management concerns. - Hypothyroidism: The patient is on medication for hypothyroidism, with recent blood work showing normal results. - Overweight: She is concerned about being overweight, attributing it to her thyroid condition and reduced activity post-hip replacement. - Post-hip replacement status: The patient is recovering from a hip replacement and is gradually increasing her activity level. - Preventative care: She has an up-to-date mammogram and a colonoscopy scheduled. Social History - Employment: The patient works at the [employer] and has adjusted her route to accommodate her post-hip replacement status. - Diet: She typically consumes one meal a day, supplemented by snacks, and drinks water and coffee with cream. - Substance Use: She quit drinking alcohol three years ago. Review of Systems - Endocrine: Reports hypothyroidism, currently on medication. - Musculoskeletal: Reports post-hip replacement status with gradual return to activity. - Gastrointestinal: Denies regular meal consumption, typically eats one meal a day. Physical Exam General: Cooperative and healthy appearing Nutritional Appearance: Well nourished Orientation/consciousness: Patient oriented x3 Limitations: No limitations Head: Normal to inspection General: Appearance normal, both eyes and all related structures Neck: Normal visual inspection Chest: Normal palpation of entire chest wall Respiratory: Normal respiratory effort Neurology: Patient oriented x3 Results Plan 1. Hypothyroidism - Continue current medication for hypothyroidism. - Monitor thyroid function tests periodically to ensure stability. 2. Overweight - Discussed potential weight loss medications and insurance coverage options. - Recommended contacting insurance to inquire about coverage for weight loss medications. 3. Post-Hip Replacement Status - Encourage gradual increase in physical activity as tolerated. Discussion Notes During the visit, we discussed the patient's hypothyroidism management, emphasizing the importance of medication adherence and periodic monitoring of thyroid function tests. We also explored options for weight management, including potential weight loss medications and the need to verify insurance coverage. The patient was advised to gradually increase physical activity following her hip replacement. Patient Instructions - Continue taking thyroid medication as prescribed. - Contact your insurance company to inquire about coverage for weight loss medications. - Gradually increase physical activity as tolerated post-hip replacement.
--- OUTSIDE RECORDS SUMMARY | 2025-05-05 09:35 | XMS_ITS | Clinical Summary ---
Author Organization [facility] Address [address] [place] [address] [place] [id number] Phone Care Team Providers Care City Assessor Name Role Phone Brian Martins MD Primary Care Provider Social History Tobacco Use Types Packs/Day Years Used Date Smoking Tobacco: Never Assessed Education Answer Date Recorded Are you interested in more education? Not on aroldo e 04/13/2025 Are you concerned about learning? Not on file 04/13/2025 No 04/13/2025 No 04/13/2025 Digital Access Answer Date Recorded No 04/13/2025 No 04/13/2025 Reliable internet access at home? Not on file 04/13/2025 Device with a working camera? Not on file Comments Unknown Sex and Gender Information Value Date Recorded Sex Assigned at Not on file Legal Sex Female 12:38 PM EDT Gender Identity Not on file Sexual Orientation Not on file Plan of Treatment Upcoming Encounters Date Type Department Care Team (Late st Contact Info) Description 07/01/2025 Procedure Pass [facility] Endoscopy Admitting Dept Virtual Department [address] [place] [phone] 07/01/2025 10:00 AM EDT Hospital Encounter [facility] Admitting Dept Virtual Department [address] [place] [phone] Blaze Walker MD [address] [place] [phone] 07/01/2025 10:00 AM EDT - 07/01/2025 10:15 AM EDT Surgery [facility] Endoscopy Admitting Dept Virtual Department [address] [place] [phone] Blaze Walker MD [address] [place] [phone] [email or web address] COLONOSCOPY Scheduled Procedures Name Priority Associated Diagnoses Date/Ti me COLONOSCOPY History of colonic polyps 07/01/2025 10:00 AM EDT Medical Devices Not on file Insurance Microtask [facility] [employer]task [employer] [place] [employer] [facility] [employer] [facility] [employer] [facility] Care Teams City Assessor Relationship Specialty Start Date End Date Brian Martins MD [address] [place] [address] [place] [id number] PCP - General Internal Medicine 04/13/25 Additional Source Comments The information contained in this document represents components of the legal health record. It is not the complete legal health record.[facility]
--- OUTSIDE RECORDS SUMMARY | 2025-05-05 09:35 | XMS_ITS | Data Portability ---
Author Organization [facility] Aakash [facility], [facility] Address [address] [place] [address] Assessment Encounter Date Assessment Date Assessment LastModified [...] and down stairs sitting standing. Problems ambulating. Prnf-ybz-qlevgsm medications are helping somewhat but not significantly. [...] [facility], [address], [place], [address], 5 15:14:47 XR, hip + pelvis, unilatera l, 2 or 3 view 2023 024 [email or web address] [facility], [address], [place], [address], 4 12:46:35 XR, hip, unilatera l, 2 or 3 view - 5 lthr p/o 2v 2023 024 [email or web address] [facility], [address], [place], [address], 4 13:14:08 XR, hip, unilatera l, 2 or 3 view - rm 301.[address] Blanc 2023 024 [facility], [address], [place], [address], 4 15:53:53 XR, hip, unilatera l, 2 or 3 view - Recheck LTHR Guanaco, room 204 2023 024 [facility], [address], [place], [address], 4 12:41:10 Medication Orders clindamyc in HCl 300 mg capsule 2023 024 [id number], [address], [place], [id number], 4 12:41:10 Patient TargetsNo targets recorded. Patient [...] a4ajBk vP9nXo QUaueC m3YtLR FvZlgJ JJ8mAn HZtai3 0r8683 AC0Kvb nmGVqD eUC8mr 84%3D INTERFACE [facility] [address], [place], [address], 02/27/2024 14:38:25 02/27/20 24 02/27/2024 XR, hip, unila teral , 2 or 3 view [email or web address]:/ [email or web address] ?Encry pted=s hAaTro YD8dLq bEUv6g %2BXZw aYqtaq 0bqfl% 2Fg9IQ a4ajBk vP9nXo QUaueC m3YtLR FvZlgJ JJ8mAn HZtai3 3d0714 AC0Kvb nmGVqD eUC8mr 84%3D INTERFACE [facility] [address], [place], [address], 02/27/2024 14:38:27 04/02/20 24 04/02/2024 XR, hip, unila teral , 2 or 3 view [email or web address]:/ [email or web address] ?Encry pted=s hAaTro YD8dLq bEUv6g %2BXZw aYqtaq 0bqfl% 2Fg9IQ a4ajBk vP9nXo QUaueC m3YtLR FvZlgJ JJ8mAn HZtai3 9x4636 AC0Kub XqGUaD eUC8mr 84%3D INTERFACE [facility] [address], [place], [address], 04/02/2024 11:04:54 04/02/20 24 04/02/2024 XR, hip, unila teral , 2 or 3 view [email or web address]:/ [email or web address] ?Encry pted=s hAaTro YD8dLq bEUv6g %2BXZw aYqtaq 0bqfl% 2Fg9IQ a4ajBk vP9nXo QUaueC m3YtLR FvZlgJ JJ8mAn HZtai3 2i5324 AC0Kub XqGUaD eUC8mr 84%3D INTERFACE [facility] [address], [place], [address], 04/02/2024 11:04:56 06/05/20 24 06/05/2024 XR, hip + pelvi s, unila teral , 2 or 3 view [email or web address]:/ [email or web address] ?Encry pted=s hAaTro YD8dLq bEUv6g %2BXZw aYqtaq 0bqfl% 2Fg9IQ a4ajBk vP9nXo QUaueC m3YtLR FvZlgJ JJ8mAn HZtai3 2l5786 AC0Kra HSNVKT eUC8mr 84%3D INTERFACE [facility] [address], [place], [address], 06/05/2024 10:17:51 06/05/20 24 06/05/2024 XR, hip + pelvi s, unila teral , 2 or 3 view [email or web address]:/ [email or web address] ?Encry pted=s hAaTro YD8dLq bEUv6g %2BXZw aYqtaq 0bqfl% 2Fg9IQ a4ajBk vP9nXo QUaueC m3YtLR FvZlgJ JJ8mAn HZtai3 2u9050 AC0Kra HSNVKT eUC8mr 84%3D INTERFACE [facility] [address], [place], [address], 06/05/2024 10:17:53 11/20/19 25 11/20/2024 XR, knee, 4 or more view [email or web address]:/ [email or web address] ?Encry pted=s hAaTro YD8dLq bEUv6g %2BXZw aYqtaq 0bqfl% 2Fg9IQ a4ajBk vP9nXo QUaueC m3YtLR FvZlgJ JJ8mAn HZtai3 9h0742 AC0Kqb HuFUqC iKiQtr MwF INTERFACE [facility] [address], [place], [address], 11/20/2024 14:05:21 11/20/19 25 11/20/2024 XR, knee, 4 or more view [email or web address] ?Encry pted=s hAaTro YD8dLq bEUv6g %2BXZw aYqtaq 0bqfl% 2Fg9IQ a4ajBk vP9nXo QUaueC m3YtLR FvZlgJ JJ8mAn HZtai3 9g2757 AC0Kqb HuFUqC iKiQtr MwF INTERFACE [facility] [address], [place], [address], 11/20/2024 14:05:23 11/24/19 25 11/24/2024 XR, knee, 4 or more view No observ ation record ed. BARCODE [employer] [address], [place], [address], 11/24/2024 17:02:18 11/25/19 25 11/24/2024 XR, knee, 4 or more view No observ ation record ed. [facility] [address], [place], [address], 11/25/2024 10:54:44 Result Notes Documentation Provider Name and Address Organization Details Recorded Time Xr, Hip, Unilateral, 2 Or 3 View : [email or web address] Encrypted=lnQvZpvBA4zBeaR Uv6g%6GFFjcTlwtw4xdcu%2Fg 1VJt0ujJjtW6lNkKLqkzIq6It KMEiBhsSEY4vGyITisp18w890 1YX8HurwzCCkHfDO4kc11%3D Not Available [facility] 02/27/2024 14:3 8:25 Xr, Hip, Unilateral, 2 Or 3 View : [email or web address] Encrypted=nuLcQtdAH6wLqwZ Uv6g%9OCEuzKembq7lhkk%2Fg 4VZn5kzIbyS4bXyZVkdlVj2Lg GLGfTrbAOX5yBbQTcli58n157 2ZU8TaybrMYjLzCC1sc36%3D Not Available [facility] 02/27/2024 14:3 8:27 Xr, Hip, Unilateral, 2 Or 3 View : [email or web address] Encrypted=fmUbFquUP7zLlaC Uv6g%7KQZjgSkdjy1phkr%2Fg 9WUe7ucPaoU4kPyTMlwaDw6Ye VULoPvsJLM7vIpIQkqj46q001 4JZ1DxiGeKAmNsYK5gf63%3D Not Available [facility] 04/02/2024 11:0 4:55 Xr, Hip, Unilateral, 2 Or 3 View : [email or web address] Encrypted=rjOoQiaPD3nZfhW Uv6g%5FQFhzIkbqn6etcf%2Fg 0UAz1ieFxtU7vWtLGewzHk0Gc QNCeCxeZZR6rIzEGafj16d975 8LN8CuoGgEWqZmSB8gd19%3D Not Available [facility] 04/02/2024 11:0 4:56 Xr, Hip + Pelvis, Unilateral, 2 Or 3 View : [email or web address] Encrypted=aoLaGiyUJ5nTpcQ Uv6g%5MODabRgpzf4vyvg%2Fg 5JVz2jyNkxV0bNoZCeylXv3Bu WVGdUpeTJV7bNnGFujq99f081 1YB9DaaQWEAFHmAK9lg39%3D Not Available [facility] 06/05/2024 10:1 7:52 Xr, Hip + Pelvis, Unilateral, 2 Or 3 View : [email or web address] Encrypted=loAfWomVK1zQlnN Uv6g%9XBJlvTwmbh6ldtp%2Fg 9GDe1rjKjkR0oGjABevcYj3By EGPbFmbZVP3rSgUCzwu73l922 2RF0GgfBAADDItDQ6wg91%3D Not Available [facility] 06/05/2024 10:1 7:54 Xr, Knee, 4 Or More View : [email or web address] Encrypted=yuIyHdwNK3zEwvK Uv6g%2UMDuuPzblc3skyh%2Fg 8NRo3zzKvlT5mRlCDgebIy6Tj EAKqMjcDHQ5zFwCLjtn79b355 7RC5HldZpICnXvEpPcpDcJ Not Available [facility] 11/20/2024 14:05: 22 Xr, Knee, 4 Or More View : [email or web address] Encrypted=flBmBuyVA7yLmjS Uv6g%7ECVcfGqjjd0vjet%2Fg 8HKn3pqIdrZ4gNmDMuzgGm3Ks UZJnMhmTYK1nCyTKyud93c584 7YN4FjeKoIRkGnLnMmrFpI Not Available [facility] 11/20/2024 14:05: 24 Problems Name Problem SNOMED Code Status Onset Date Resolution Date Notes Provider Name and Address Organization Details Recorded Time No complaints 493348074 Active Status : 'A'; Not Available [facility] 09:16:40 Problem Notes None recorded. Procedures Surgical History Date Name Laterality Status Provider Name and Address Organization Details Recorded Time 5 JZKNEE INJ completed Ash Zendejas PA-C [address], [place], [address], [facility] 11/20/2024 14:13:42 4 93708 Therapeutic Exercise (1:1) cancelled Minh Pyser, PT [address], [place], [address], [facility] 01/14/2024 21:00:32 4 07053: Hot or Cold Pack cancelled Minh Pyser, PT [address], [place], [address], [facility] 01/14/2024 21:00:32 4 96256 Therapeutic Exercise (1:1) cancelled Minh Pyser, PT [address], [place], [address], [facility] 01/11/2024 08:48:08 4 85196: Hot or Cold Pack cancelled Minh Pyser, PT [address], [place], [address], [facility] 01/11/2024 08:48:08 4 73070 Therapeutic Exercise (1:1) completed Minh Pyser, PT [address], [place], [address], [facility] 01/06/2024 15:56:19 4 85325: Hot or Cold Pack completed Minh Pyser, PT [address], [place], [address], [facility] 01/06/2024 15:56:39 4 78830 Therapeutic Exercise (1:1) completed Amanda Jara, DPT [address] [facility], [place], [address], [facility] 01/05/2024 11:19:42 4 03329: Moderate complexity PT eval completed Amanda Jara, DPT [address], [place], [address], [facility] 01/05/2024 11:19:38 4 Hip Surgery completed HOWRAD OQUENDO [facility] 04/02/2024 10:49:45 Ankle/Foot Surgery completed HOWARD OQUENDO [facility] 04/02/2024 10:49:45 Imaging Results None recorded. Procedure Notes None recorded. Medical Equipment None Reported. Allergies Allergen ID Allergen Name Allergen Category Reaction Reaction Severity Criticality Documentation Date Start Date Code Code System Note Provider Name and Address Organization Details Recorded Time 98942 Product containin g penicilli n (product) medicatio n Not available Not available Not available 12/16/20232018 76407 8001 SNOMED Not Available [facility] 13:27:49 Medications Name Sig Start Date [...] Updated DateTime 11/20/2024 175.26 cm 41.1 kg/m2 182951.68 g Willie Menard [facility] 11/20/2024 13:55:50 Date Recorded Body height Body mass index (BMI) Body weight Provider Name and Address Organization Details Last Updated DateTime 01/28/2024 175.26 cm 39.9 kg/m2 255106.94 g ANDRAE ESQUIVEL [facility] 01/28/2024 11:45:25 Date Recorded Body height Provider Name an d Address Organization Details Last Updated DateTime 02/27/2024 175.26 cm JIMMY MALDONADO [facility] 02/27/2024 14:32:55 Date Recorded Body height Body mass index (BMI) Body weight Provider Name and Address Organization Details Last Updated DateTime 04/02/2024 175.26 cm 41.1 kg/m2 088325.68 g HOWARD OQUENDO [facility] 04/02/2024 10:49:54 Date Recorded Body height Body mass index (BMI) Body weight Provider Name and Address Organization Details Last Updated DateTime 06/05/2024 175.26 cm 41.1 kg/m2 386390.68 g Willie Menard [place] - [facility] 06/05/2024 09:59:17 Social History Question Answer Notes LastModified by Organizat ion Details LastModified Time Tobacco Smoking Status Former Smoker HOWARD ROSALESGABRIELLA colmenares [place] [facility] [place] [facility] 04/02/2024 10:49:40 When Did You [...] SNOMED-CT Code Diagnosis ICD10 Code Diagnosis Note [id number] Amanda Jara, DPT [facility] [address] [place] [address] 01/03/2024 11:00:41 01/03/2024 14:23:59 Aftercare [id number] Z47.1 History of total replacement of left hip joint 1935561715 838098 Z96.141 [id number] Minh Gordon, PT [facility] [address] [place] [address] 01/06/2024 15:03:45 01/06/2024 16:18:55 Aftercare 707409835 Z47.1 History of total replacement of left hip joint 8654483255 517800 Z96.418 [id number] Rigoberto Theodore PA-C [facility] [address] [place] [address] 01/14/2024 13:54:14 02/03/2024 13:03:20 Pain of left hip joint 0335325555 82666 M25.552 Osteoarthr itis of left hip joint 5560090832 58972 M16.12 [id number] SHANELLE Daniel [address] [place] [address] 01/28/2024 10:53:56 02/18/2024 12:41:03 Aftercare 741180123 Z47.31 History of total replacement of right hip joint 9824120882 69099 Z96.641 History of total hip arthroplasty 3336500696 06 Z96.347 [id number] SHANELLE Daniel [address] [place] [address] 02/27/2024 14:30:22 03/24/2024 09:00:18 History of total replacement of left hip joint 9638144617 184106 Z96.481 [id number] Hamilton Blanc MD [facility] [address] [place] [address] 04/02/2024 10:13:44 04/28/2024 13:14:08 History of total replacement of left hip joint 5971045701 758281 Z96.381 [id number] Ash Zendejas PA-C [facility] [address] [place] [address] 06/05/2024 09:35:07 07/03/2024 12:26:24 Trochanteric bursitis of left hip 4004758746 84849 M70.62 [id number] Ash Zendejas PA-C [facility] [address] [place] [address] 11/20/2024 13:26:10 12/08/2024 14:37:49 Pain of knee region 5898072383 M25.561 M25.562 Health Concerns Section Related Observation LastModified by Organization Detai ls LastModified Time None Recorded Concern Status LastModified by Organization Details LastModified Time None Recorded Advance Directives Directive None Recorded Payers Insurance Date Sequence Insurance Name Policy Number Policy Fried Covered Member ID Fried Member ID Guarantor Name 12/08/2024 1 [facility] [employer] [id number] Darya Michelle [id number] Darya Michelle Notes Date Note Type Note [...] extension. X-rays ordered, obtained and reviewed at [facility] . 2 views of the right hip [...] up in 2 months for repeat evaluation [facility] speech recognition audograph operator software was used to create portions of this document. An attempt at proofreading has been made to minimize errors. Please call for corrections. Samuel Bui PA-C [address] [place] [address], [place], [address], [facility] 01/28/2024 12:41:06 02/27/2024 text/html [...] extension. X-rays ordered, obtained and reviewed at [facility] . 2 views of the left hip [...] for repeat evaluation updated work note given. [facility] speech recognition audograph operator software was used to create portions of this document. An attempt at proofreading has been made to minimize errors. Please call for corrections. Samuel Bui PA-C [address], [place], [address], [facility] 02/27/2024 15:44:25 OBGyn Episode No OBEpisode recorded.
== END 2025-05-05 09:31 | disposition home or self-care (01) ==
LOC: HO.HMCHD 09:06
PROVIDERS: PCP Internal Medicine; Visit Provider Internal Medicine
DX: I71.40 Abdominal aortic aneurysm, without rupture, unspecified (principal); I10 Essential (primary) hypertension; Z00.00 Encounter for general adult medical examination without abnormal findings